=== PATIENT | male | born 1945 | race Caucasian/White ===

== ENCOUNTER → 2016-10-07 | Outpatient (REF) | payer MEDICARE | LOC: M LAB REF 12:49 | PROVIDERS: ATTEND Dermatology | DX: C44.310 Basal cell carcinoma of skin of unspecified parts of face (principal); C44.01 Basal cell carcinoma of skin of lip ==

== ENCOUNTER → 2016-11-07 | Outpatient (CLI) | payer MEDICARE | LOC: M SMT 13:23 | PROVIDERS: ATTEND Orthopaedic Surgery | DX: M25.521 Pain in right elbow (principal) ==

== ENCOUNTER → 2016-12-07 | Outpatient (CLI) | payer MEDICARE ==
--- NOTE | 2016-12-13 14:00 | SLEEPHOME ---
DATE OF PROCEDURE: 12/07/2016 REFERRING PROVIDER: Laverne Bonner DO INTERPRETATION: Diagnostic home sleep testing was performed due to concern for the obstructive sleep apnea syndrome in this patient with abnormal nocturnal oximetry. For testing, a NOX-T3 respiratory monitoring device was used. Continuous record was made of pulse, oxygen saturation, air flow, chest and abdominal strain, and body position. 9 hours and 59 minutes of data were reviewed. There were only 2 hours and 8 minutes marked as time in bed. During the interval marked time in bed, there were 12 respiratory events identified of 10 seconds in duration or greater for a respiratory event index of 5.6. The events were obstructive. Baseline pulse rate 64 beats per minute. Pulse rate ranged 61 to 69. Baseline saturation was 89%. Lowest oxygen saturation was 88%. Testing was performed in both the supine and nonsupine positions. IMPRESSION: Abnormal home sleep testing with repetitive respiratory events and oxygen desaturations to 88% with a respiratory event index of 5.6 is consistent with the obstructive sleep apnea syndrome. RECOMMENDATION: Home testing tends to underestimate the severity of disease and there was little time in bed noted during this study. In light of this, the patient should undergo formal sleep evaluation and consider in laboratory pressure titration.
== END ==
LOC: M SLEEP HO 12-04 11:49
PROVIDERS: ATTEND Family Medicine
DX: R53.83 Other fatigue (principal); R06.83 Snoring; G47.9 Sleep disorder, unspecified

== ENCOUNTER → 2017-02-04 | Outpatient (CLI) | payer MEDICARE ==
[~2017-02-04] MED LIST: GASTROGRAFIN SOLUTION 30ML (Q9963) As Ordered ONE
--- NOTE | 2017-02-05 09:18 | REP ---
CT ABDOMEN AND PELVIS WITHOUT IV CONTRAST WITH ORAL CONTRAST: CT abdomen and pelvis performed with oral contrast material in the axial plane, without IV contrast. Sagittal and coronal reconstruction images are performed. Visualized lung bases are clear. There is a small hiatal hernia. The liver, spleen, adrenals, pancreas, and kidneys are grossly unremarkable. No renal or ureteral calculus is seen and there is no hydroureteronephrosis. There is moderate atherosclerotic calcification of the abdominal aorta without aneurysm. I see no adenopathy. There is no free air or free fluid. There is no bowel wall thickening. Multiple diverticula are seen throughout the sigmoid and left colon. There is no appendicitis. There is no pelvic mass. Urinary bladder is mildly distended and grossly unremarkable. There is umbilical hernia containing fat. The aperture of the hernia is 3 cm in width. The hernia sac contains only fat. The sac measures 5.7 x 8.0 cm. There is no current evidence of incarceration. There are degenerative changes of the spine. IMPRESSION: Small hiatal hernia. Umbilical hernia containing fat as discussed above with no incarceration. Aperture is 3 cm in width. Colonic diverticulosis. No acute abnormalities. Signed by Anderson England MD 02/05/2017 05:32 P
== END ==
LOC: M RAD 16:21
PROVIDERS: ATTEND Physician Assistant Surgical
DX: K42.0 Umbilical hernia with obstruction, without gangrene (principal)
CPT/HCPCS: 74176; Q9963

== ENCOUNTER → 2017-03-05 | Outpatient (CLI) | payer MEDICARE ==
--- NOTE | 2017-03-07 14:56 | SLEEPCENT ---
DATE OF PROCEDURE: 03/05/2017 ORDERED BY: Heather Burrell Nocturnal polysomnography was performed for the titration of pressure therapy in this patient with a clinical diagnosis of obstructive sleep apnea syndrome supported by home testing, revealing a respiratory event index of 5.6. For testing, a Tripeese Simplus full face mask of medium size was used, 4 cm of water pressure were applied to the circuit and the lights were extinguished. 8 hours and 9 minutes of data were reviewed. There were 312 minutes of sleep identified. Sleep latency was mildly prolonged at 35 minutes. Rapid eye movement (REM) latency mildly prolonged at 123 minutes. Sleep architecture improved over the course of the study. There were 4 REM cycles noted. Overall sleep efficiency was 64% due to periods of wake between 1:00 and 2:00 and 3:00 and 4:00 a.m. The patient's electrocardiogram showed a sinus rhythm with an average heart rate of 76 beats per minute. EEG showed normal waveforms for awake and sleep. Respiratory events were best palliated with continuous positive airway pressure (CPAP) at a pressure of +11 with which the patient was able to sleep through REM without respiratory event or oxygen desaturation. The remaining measures of sleep physiology were reasonably normal. IMPRESSION: Obstructive sleep apnea syndrome (G47.33). RECOMMENDATION: Nightly use of pressure therapy 11 cm of water. Copy To: Dr. Bonner
== END ==
LOC: M SLEEP 19:58
PROVIDERS: ATTEND Nurse Practitioner Adult Health
DX: G47.33 Obstructive sleep apnea (adult) (pediatric) (principal)

== ENCOUNTER → 2018-06-16 | Outpatient (CLI) | payer MEDICARE ==
--- NOTE | 2018-06-16 15:41 | REP ---
LEFT FOOT, FOUR VIEWS: HISTORY: Injury. There is an old healed fracture of the fifth metatarsal. There is no acute fracture or dislocation. The joint spaces are normal in appearance. IMPRESSION: There is no acute fracture or dislocation. Electronically Signed by Philippe Zavala MD 06/16/2018 03:51 P
== END ==
LOC: M SMT 14:29
PROVIDERS: ATTEND Family Medicine
DX: S99.921A Unspecified injury of right foot, initial encounter (principal); W11.XXXA Fall on and from ladder, initial encounter; Y92.9 Unspecified place or not applicable; Y93.9 Activity, unspecified; Y99.9 Unspecified external cause status

== ENCOUNTER → 2018-09-14 | Outpatient (CLI) | payer MEDICARE ==
--- NOTE | 2018-09-14 23:21 | ECHO ---
DATE OF PROCEDURE: 09/14/2018 REFERRING PHYSICIAN: JIM Stanton INDICATION: Dyspnea. HEIGHT: 69 inches WEIGHT: 170 pounds 2D MEASUREMENTS: Left atrium: 3.6 cm Aortic root: 3.5 cm Ventricular septum: 0.76 cm Posterior wall: 0.79 cm Left ventricle diastole: 3.9 cm Inferior vena cava: 2.0 cm (more than 50% respiratory variation) DOPPLER MEASUREMENTS: Trace aortic regurgitation. No aortic stenosis. Aortic valve velocity: 110 cm/s LVOT velocity: 93.8 cm/s No mitral regurgitation. Mitral E velocity: 65.0 cm/s Mitral A velocity: 65.0 cm/s Mitral deceleration time: 254 ms Moderate tricuspid regurgitation. Estimated right ventricle systolic pressure 49 mmHg assuming a right atrial pressure of 5 mmHg. MITRAL ANNULAR TISSUE DOPPLER: E prime septal: 7.4 cm/s E prime lateral: 9.7 cm/s DESCRIPTION: Rhythm was sinus. Image quality was fair. No pericardial effusion. This is a 2D, M-mode, color flow Doppler and pulse wave Doppler examination that included mitral annular tissue Doppler. CONCLUSIONS: 1. Suggestive of moderate elevation of estimated right ventricle systolic pressure. Moderate tricuspid regurgitation. Mild right ventricle hypertrophy. Normal right ventricle systolic function. Mild right atrial dilatation by visual assessment. Structurally normal appearing tricuspid leaflets with moderate tricuspid regurgitation. 2. Hyperdynamic LV systolic function. LVEF 75% by visual estimate. Normal regional LV wall motion and wall thickening. Normal LV systolic function. Normal LV diastolic function for age. 3. Moderate aortic valve sclerosis of a three-cuspid aortic valve. Trace aortic regurgitation. No aortic stenosis. 4. Otherwise normal appearing echocardiogram Doppler findings.
== END ==
LOC: M CARPUL 09:25
PROVIDERS: ATTEND Physician Assistant
DX: R06.00 Dyspnea, unspecified (principal); I35.8 Other nonrheumatic aortic valve disorders

== ENCOUNTER → 2021-05-03 | Outpatient (CLI) | payer MEDICARE | LOC: M WUC 13:22 | PROVIDERS: ATTEND Physician Assistant | DX: R93.7 Abnormal findings on diagnostic imaging of other parts of musculoskeletal system (principal); M79.652 Pain in left thigh ==

== ENCOUNTER → 2021-05-17 | Outpatient (CLI) | payer MEDICARE | LOC: M PLAIMG 13:45 | PROVIDERS: ATTEND Physician Assistant | DX: D48.7 Neoplasm of uncertain behavior of other specified sites (principal) ==

== ENCOUNTER → 2021-07-09 | Outpatient (CLI) | payer MEDICARE | LOC: M PLAIMG 13:23 | PROVIDERS: ATTEND Physician Assistant | DX: M51.26 Other intervertebral disc displacement, lumbar region (principal); M51.27 Other intervertebral disc displacement, lumbosacral region; M51.37 Other intervertebral disc degeneration, lumbosacral region ==

== ENCOUNTER → 2022-02-03 | Outpatient (CLI) | payer MEDICARE | LOC: M WUC 13:53 | PROVIDERS: ATTEND Physician Assistant | DX: J20.9 Acute bronchitis, unspecified (principal) ==

== ENCOUNTER 2022-10-28 11:28 | Outpatient (RCR) | payer MEDICARE | END 2022-11-17 | LOC: M ST 11:28 | PROVIDERS: ATTEND Otolaryngology | DX: R49.0 Dysphonia (principal) ==

== ENCOUNTER → 2023-02-20 | Outpatient (CLI) | payer MEDICARE | LOC: M WUC 15:22 | PROVIDERS: ATTEND Family Medicine | DX: E87.1 Hypo-osmolality and hyponatremia (principal); J44.9 Chronic obstructive pulmonary disease, unspecified ==

== ENCOUNTER → 2023-05-07 | Outpatient (REF) | payer MEDICARE | LOC: M LAB REF 16:48 | PROVIDERS: ATTEND Physician Assistant | DX: J44.0 Chronic obstructive pulmonary disease with (acute) lower respiratory infection (principal) ==

== ENCOUNTER → 2023-05-08 | Outpatient (CLI) | payer MEDICARE | LOC: M WUC 14:43 | PROVIDERS: ATTEND Physician Assistant | DX: J44.0 Chronic obstructive pulmonary disease with (acute) lower respiratory infection (principal) ==

== ENCOUNTER → 2023-05-25 | Outpatient (CLI) | payer MEDICARE | LOC: M WUC 14:02 | PROVIDERS: ATTEND Physician Assistant | DX: J15.20 Pneumonia due to staphylococcus, unspecified (principal); J44.0 Chronic obstructive pulmonary disease with (acute) lower respiratory infection ==

== ENCOUNTER → 2023-07-01 | Outpatient (CLI) | payer MEDICARE ==
[2023-07-01 18:10] LABS: BLOOD UREA NITROGEN 16 MG/DL (9-23); CALCIUM LEVEL 8.8 MG/DL (8.3-10.6); CARBON DIOXIDE LEVEL 29 MMOL/L (20-31); CHLORIDE LEVEL 101 MMOL/L (98-107); CREATININE FOR GFR 1.06 MG/DL (0.70-1.30); GLOMERULAR FILTRATION RATE > 60.0 (>42); GLUCOSE, FASTING 97 MG/DL (74-106); POTASSIUM SERUM 4.2 MMOL/L (3.5-5.1); SODIUM LEVEL 136 MMOL/L (136-145)
== END ==
LOC: M PLALAB 15:21
PROVIDERS: ATTEND Physician Assistant
DX: I10 Essential (primary) hypertension (principal)

== ENCOUNTER → 2023-07-03 | Outpatient (CLI) | payer MEDICARE ==
[~2023-07-03] MED LIST changes: -GASTROGRAFIN SOLUTION 30ML (Q9963) As Ordered ONE; +ISOVUE-370 76% 100ML VIAL As Ordered ONE
== END ==
LOC: M RAD 10:09
PROVIDERS: ATTEND Physician Assistant
DX: R91.8 Other nonspecific abnormal finding of lung field (principal); R06.09 Other forms of dyspnea
CPT/HCPCS: 71260; Q9967

== ENCOUNTER → 2023-07-17 | Outpatient (CLI) | payer MEDICARE ==
[~2023-07-17] MED LIST changes: +ALPR0.5T3; +AMLO5CAP53; +BREO1INH3; +BUPR150T12; +ERGO500029; +FLUT1BLS17; +HYDR-3490; -ISOVUE-370 76% 100ML VIAL As Ordered ONE; +PANT40TA29; +SIMV20TA22; +SPIR12.9; +TAMS1CAP17; +TRAZ-252
== END ==
LOC: M RAD 07:45
PROVIDERS: ATTEND Internal Medicine Pulmonary Disease
DX: R91.8 Other nonspecific abnormal finding of lung field (principal)

== ENCOUNTER → 2023-08-24 | Outpatient (CLI) | payer MEDICARE ==
[~2023-08-24] MED LIST changes: -AMLO5CAP53; +AMLO5CAP53 PO; -BREO1INH3; +BREO1INH3 INH; -BUPR150T12; +BUPR150T12 PO; -ERGO500029; +ERGO500029 PO; -FLUT1BLS17; +FLUT1BLS17 INH; -HYDR-3490; +HYDR-3490 PO; -PANT40TA29; +PANT40TA29 PO; -SIMV20TA22; +SIMV20TA22 PO; -SPIR12.9; +SPIR12.9 INH; -TAMS1CAP17; +TAMS1CAP17 PO; -TRAZ-252; +TRAZ-252 PO
== END ==
LOC: M ONCR 13:42
PROVIDERS: ATTEND General Practice
DX: C34.11 Malignant neoplasm of upper lobe, right bronchus or lung (principal); R91.8 Other nonspecific abnormal finding of lung field; M54.9 Dorsalgia, unspecified; Z71.2 Person consulting for explanation of examination or test findings; Z87.891 Personal history of nicotine dependence; Z88.1 Allergy status to other antibiotic agents; Z88.2 Allergy status to sulfonamides; Z88.8 Allergy status to other drugs, medicaments and biological substances; Z79.51 Long term (current) use of inhaled steroids; Z79.899 Other long term (current) drug therapy

== ENCOUNTER → 2023-08-26 | Outpatient (CLI) | payer MEDICARE ==
[~2023-08-26] VITALS: Ht 175.3 cm; Wt 81.6 kg
[~2023-08-26] MED LIST changes: +LIDOCAINE 1% MDV 20ML VIAL As Ordered ONE; +LIDOCAINE W/EPINEPHRINE 1% 20ML VIAL As Ordered ONE; +MIDAZOLAM INJ 2MG/2ML VIAL As Ordered ONE; +NS 1,000 ML IV SCH; +ceFAZolin 2 GM/D5W 50 ML IV BAG As Ordered ONE; +ceFAZolin SOD 2 GM in IV 1 EA IV ONE; +fentaNYL 100 MCG/2 ML INJECTION As Ordered ONE
[2023-08-26 09:35] VITALS: TEMP 98.4
[2023-08-26 13:00] VITALS: BP 138/72; O2SAT 92
== END ==
LOC: M IRPRO 09:11
PROVIDERS: ATTEND Internal Medicine Medical Oncology
DX: C34.90 Malignant neoplasm of unspecified part of unspecified bronchus or lung (principal)
CPT/HCPCS: 36561; 99152; 99153; C1769; J0690; J2250; J3010

== ENCOUNTER → 2023-09-18 | Outpatient (RCR) | payer MEDICARE ==
[~2023-09-18] MED LIST changes: -LIDOCAINE 1% MDV 20ML VIAL As Ordered ONE; -LIDOCAINE W/EPINEPHRINE 1% 20ML VIAL As Ordered ONE; -MIDAZOLAM INJ 2MG/2ML VIAL As Ordered ONE; -NS 1,000 ML IV SCH; -ceFAZolin 2 GM/D5W 50 ML IV BAG As Ordered ONE; -ceFAZolin SOD 2 GM in IV 1 EA IV ONE; -fentaNYL 100 MCG/2 ML INJECTION As Ordered ONE
== END ==
LOC: M ONCR 08-27 10:25
PROVIDERS: ATTEND General Practice
DX: Z51.0 Encounter for antineoplastic radiation therapy (principal); C34.11 Malignant neoplasm of upper lobe, right bronchus or lung

== ENCOUNTER 2023-10-10 12:37 | Emergency (ER) | payer MEDICARE ==
[~2023-10-10] VITALS: Ht 175.3 cm; Wt 81.4 kg
[2023-10-10] MEDS: NORCO, ANEXSIA 5/325MG TABLET (HYDROcodone/ACETAMINOPHEN) PO ONE (15:59)
[2023-10-10] MEDS ORDERED: HYDR-3713 PO (17:04)
[2023-10-10 17:23] VITALS: BP 114/54; TEMP 97.7; O2SAT 96
[2023-10-12] MEDS ORDERED: ACET-907 PO (13:21)
[2023-10-12] MEDS ORDERED: advil PO (13:21)
== END 2023-10-10 17:24 | disposition home or self-care (01) ==
LOC: M ED 12:37
DX: S82.431A Displaced oblique fracture of shaft of right fibula, initial encounter for closed fracture (principal); S92.311A Displaced fracture of first metatarsal bone, right foot, initial encounter for closed fracture; S92.321A Displaced fracture of second metatarsal bone, right foot, initial encounter for closed fracture; S92.341A Displaced fracture of fourth metatarsal bone, right foot, initial encounter for closed fracture; S82.64XA Nondisplaced fracture of lateral malleolus of right fibula, initial encounter for closed fracture; W18.40XA Slipping, tripping and stumbling without falling, unspecified, initial encounter; Y92.009 Unspecified place in unspecified non-institutional (private) residence as the place of occurrence of the external cause; Y93.9 Activity, unspecified; Y99.9 Unspecified external cause status; I10 Essential (primary) hypertension; E78.5 Hyperlipidemia, unspecified; G47.33 Obstructive sleep apnea (adult) (pediatric); Z85.118 Personal history of other malignant neoplasm of bronchus and lung; Z92.21 Personal history of antineoplastic chemotherapy; Z92.3 Personal history of irradiation; Z79.899 Other long term (current) drug therapy; Z88.2 Allergy status to sulfonamides; Z88.8 Allergy status to other drugs, medicaments and biological substances

== ENCOUNTER → 2023-10-13 | Outpatient (CLI) | payer MEDICARE ==
[~2023-10-13] MED LIST changes: +ACET-907 PO; +HYDR-3713 PO; +advil PO
== END ==
LOC: M SOG 08:38
PROVIDERS: ATTEND Orthopaedic Surgery
DX: M25.571 Pain in right ankle and joints of right foot (principal)

== ENCOUNTER 2023-10-16 13:29 | Outpatient (RCR) | payer MEDICARE | END 2023-10-18 | LOC: M ONCR 13:29 | PROVIDERS: ATTEND General Practice | DX: Z51.0 Encounter for antineoplastic radiation therapy (principal); C34.11 Malignant neoplasm of upper lobe, right bronchus or lung ==

== ENCOUNTER → 2023-10-21 | Outpatient (CLI) | payer MEDICARE | LOC: M SOG 07:55 | PROVIDERS: ATTEND Orthopaedic Surgery | DX: S82.61XA Displaced fracture of lateral malleolus of right fibula, initial encounter for closed fracture (principal) ==

== ENCOUNTER 2023-10-26 13:38 | Outpatient (RCR) | payer MEDICARE | END 2023-11-18 | LOC: M ONCR 13:38 | PROVIDERS: ATTEND General Practice | DX: Z51.0 Encounter for antineoplastic radiation therapy (principal); C34.11 Malignant neoplasm of upper lobe, right bronchus or lung ==

== ENCOUNTER → 2023-10-28 | Outpatient (CLI) | payer MEDICARE | LOC: M SOG 07:54 | PROVIDERS: ATTEND Orthopaedic Surgery | DX: S82.61XA Displaced fracture of lateral malleolus of right fibula, initial encounter for closed fracture (principal); S92.324A Nondisplaced fracture of second metatarsal bone, right foot, initial encounter for closed fracture; S92.314A Nondisplaced fracture of first metatarsal bone, right foot, initial encounter for closed fracture; Y93.9 Activity, unspecified; Y92.9 Unspecified place or not applicable ==

== ENCOUNTER 2023-10-29 10:36 | Outpatient (CLI) | payer MEDICARE ==
[2023-10-29 11:15] VITALS: BP 112/56; O2SAT 96
[2023-10-29] MEDS: MAG SULF 1GM/100ML (MAG RUN) IV ONE (11:27)
[2023-10-29] MEDS: SODIUM CHLORIDE 0.9% INJ 10 ML SYR IV PRN (12:24)
[2023-10-29 12:30] VITALS: BP 118/58; O2SAT 97
== END 2023-10-29 12:30 ==
LOC: M INFU 10:36
PROVIDERS: ATTEND Internal Medicine Medical Oncology
DX: C34.90 Malignant neoplasm of unspecified part of unspecified bronchus or lung (principal); Z88.2 Allergy status to sulfonamides; Z88.8 Allergy status to other drugs, medicaments and biological substances
CPT/HCPCS: 96365; J3475

== ENCOUNTER → 2023-11-11 | Outpatient (CLI) | payer MEDICARE | LOC: M SOG 08:00 | PROVIDERS: ATTEND Orthopaedic Surgery | DX: S92.344D Nondisplaced fracture of fourth metatarsal bone, right foot, subsequent encounter for fracture with routine healing (principal); S82.61XD Displaced fracture of lateral malleolus of right fibula, subsequent encounter for closed fracture with routine healing; S92.314D Nondisplaced fracture of first metatarsal bone, right foot, subsequent encounter for fracture with routine healing; S92.324D Nondisplaced fracture of second metatarsal bone, right foot, subsequent encounter for fracture with routine healing ==

== ENCOUNTER → 2023-11-30 | Outpatient (CLI) | payer MEDICARE ==
[~2023-11-30] MED LIST changes: +GASTROGRAFIN SOLUTION 30ML As Ordered ONE; +ISOVUE-370 76% 100ML VIAL As Ordered ONE
== END ==
LOC: M RAD 14:13
PROVIDERS: ATTEND Internal Medicine Medical Oncology
DX: C34.90 Malignant neoplasm of unspecified part of unspecified bronchus or lung (principal)
CPT/HCPCS: 71260; 74177; Q9963; Q9967

== ENCOUNTER → 2023-12-02 | Outpatient (CLI) | payer MEDICARE ==
[~2023-12-02] MED LIST changes: -GASTROGRAFIN SOLUTION 30ML As Ordered ONE; -ISOVUE-370 76% 100ML VIAL As Ordered ONE
== END ==
LOC: M SOG 08:00
PROVIDERS: ATTEND Orthopaedic Surgery
DX: S82.61XD Displaced fracture of lateral malleolus of right fibula, subsequent encounter for closed fracture with routine healing (principal); S92.314D Nondisplaced fracture of first metatarsal bone, right foot, subsequent encounter for fracture with routine healing; M19.071 Primary osteoarthritis, right ankle and foot

== ENCOUNTER → 2023-12-08 | Outpatient (REF) | payer MEDICARE ==
[2023-12-08 22:40] LABS: AMORPHOUS SEDIMENT SMALL (NEGATIVE); APPEARANCE, URINE CLOUDY (CLEAR); BACTERIA, URINE AUTO 2+ (NEGATIVE); BILIRUBIN, URINE AUTO NEGATIVE (NEGATIVE); BLOOD, URINE BLOOD NEGATIVE (NEGATIVE); COLOR, URINE AMBER (YELLOW); GLUCOSE, URINE (UA) AUTO NEGATIVE (NEGATIVE); KETONE, URINE AUTO NEGATIVE (NEGATIVE); LEUKOCYTE ESTERASE, URINE AUTO 3+ (NEGATIVE); MUCUS, URINE SMALL (NEGATIVE); NITRITE, URINE AUTO POSITIVE (NEGATIVE); PROTEIN, URINE AUTO 2+ mg/dL (NEGATIVE); RBC, URINE AUTO 2 /HPF (0-3); SPECIFIC GRAVITY URINE AUTO 1.012 (1.002-1.035); SQUAMOUS EPITHELIAL CELL UR AU 0 /HPF (0-6); WBC, URINE AUTO 121 /HPF (0-3)
== END ==
LOC: M LAB REF 22:23
PROVIDERS: ATTEND Physician Assistant Medical
DX: N39.0 Urinary tract infection, site not specified (principal)

== ENCOUNTER → 2024-01-14 | Outpatient (CLI) | payer MEDICARE | LOC: M SOG 07:21 | PROVIDERS: ATTEND Orthopaedic Surgery | DX: S92.314D Nondisplaced fracture of first metatarsal bone, right foot, subsequent encounter for fracture with routine healing (principal); S92.324D Nondisplaced fracture of second metatarsal bone, right foot, subsequent encounter for fracture with routine healing; S82.61XD Displaced fracture of lateral malleolus of right fibula, subsequent encounter for closed fracture with routine healing ==

== ENCOUNTER → 2024-02-10 | Outpatient (CLI) | payer MEDICARE | LOC: M WUC 11:13 | PROVIDERS: ATTEND Physician Assistant | DX: M25.571 Pain in right ankle and joints of right foot (principal) ==

== ENCOUNTER → 2024-03-14 | Outpatient (CLI) | payer MEDICARE | LOC: M SOG 07:53 | PROVIDERS: ATTEND Orthopaedic Surgery | DX: S82.61XD Displaced fracture of lateral malleolus of right fibula, subsequent encounter for closed fracture with routine healing (principal); S92.314D Nondisplaced fracture of first metatarsal bone, right foot, subsequent encounter for fracture with routine healing; S92.324D Nondisplaced fracture of second metatarsal bone, right foot, subsequent encounter for fracture with routine healing ==

== ENCOUNTER 2024-03-29 15:00 | Outpatient (RCR) | payer MEDICARE | END 2024-04-19 | LOC: M PT 15:00 | PROVIDERS: ATTEND Orthopaedic Surgery | DX: S82.61XD Displaced fracture of lateral malleolus of right fibula, subsequent encounter for closed fracture with routine healing (principal) ==

== ENCOUNTER → 2024-04-27 | Outpatient (CLI) | payer MEDICARE ==
[~2024-04-27] MED LIST changes: +IPRA0.00 INH
== END ==
LOC: M ONCR 13:51
PROVIDERS: ATTEND General Practice
DX: C34.11 Malignant neoplasm of upper lobe, right bronchus or lung (principal); J44.9 Chronic obstructive pulmonary disease, unspecified; R53.81 Other malaise; Z87.891 Personal history of nicotine dependence; Z92.3 Personal history of irradiation; Z79.620 Long term (current) use of immunosuppressive biologic; Z88.8 Allergy status to other drugs, medicaments and biological substances; Z88.2 Allergy status to sulfonamides; Z88.1 Allergy status to other antibiotic agents; Z79.899 Other long term (current) drug therapy; Z79.51 Long term (current) use of inhaled steroids; Z99.89 Dependence on other enabling machines and devices

== ENCOUNTER → 2024-05-05 | Outpatient (CLI) | payer MEDICARE ==
[~2024-05-05] MED LIST changes: +ISOVUE-370 76% 100ML VIAL As Ordered ONE
== END ==
LOC: M RAD 15:38
PROVIDERS: ATTEND Internal Medicine Medical Oncology
DX: C34.90 Malignant neoplasm of unspecified part of unspecified bronchus or lung (principal)
CPT/HCPCS: 71260; 74177; Q9967

== ENCOUNTER 2024-05-11 12:08 | Outpatient (RCR) | payer MEDICARE ==
[~2024-05-11 12:08] MED LIST changes: -ISOVUE-370 76% 100ML VIAL As Ordered ONE
== END 2024-05-20 ==
LOC: M PT 12:08
PROVIDERS: ATTEND Orthopaedic Surgery
DX: S82.61XD Displaced fracture of lateral malleolus of right fibula, subsequent encounter for closed fracture with routine healing (principal); M62.81 Muscle weakness (generalized)

== ENCOUNTER → 2024-05-13 | Outpatient (CLI) | payer MEDICARE | LOC: M SOG 09:46 | PROVIDERS: ATTEND Orthopaedic Surgery | DX: M25.571 Pain in right ankle and joints of right foot (principal); R93.6 Abnormal findings on diagnostic imaging of limbs ==

== ENCOUNTER → 2024-06-13 | Outpatient (CLI) | payer MEDICARE ==
[~2024-06-13] MED LIST changes: +LATA1DRO
== END ==
LOC: M PLARAD 11:32
PROVIDERS: ATTEND Nurse Practitioner Women's Health
DX: C34.11 Malignant neoplasm of upper lobe, right bronchus or lung (principal)
CPT/HCPCS: 78815; A9552

== ENCOUNTER → 2024-06-17 | Outpatient (RCR) | payer MEDICARE | LOC: M PT 11:17 | PROVIDERS: ATTEND Orthopaedic Surgery | DX: M62.81 Muscle weakness (generalized) (principal); S82.61XD Displaced fracture of lateral malleolus of right fibula, subsequent encounter for closed fracture with routine healing ==

== ENCOUNTER → 2024-06-23 | Outpatient (CLI) | payer MEDICARE ==
[~2024-06-23] MED LIST changes: +ADVA1AER8 INH; +AMLO1TAB37 PO; +B-12100021 PO; +CIPR3OPO OU; +DORZ2SOL5 OU; +ENUL10SO PO; +FISH10002 PO; +LACT20EL PO; +XALA0.007 OU
== END ==
LOC: M ONCR 11:08
PROVIDERS: ATTEND General Practice
DX: C34.11 Malignant neoplasm of upper lobe, right bronchus or lung (principal); C77.1 Secondary and unspecified malignant neoplasm of intrathoracic lymph nodes; Z79.620 Long term (current) use of immunosuppressive biologic; Z92.21 Personal history of antineoplastic chemotherapy; Z92.3 Personal history of irradiation; Z87.891 Personal history of nicotine dependence; Z88.1 Allergy status to other antibiotic agents; Z88.2 Allergy status to sulfonamides; Z88.8 Allergy status to other drugs, medicaments and biological substances; Z79.51 Long term (current) use of inhaled steroids; Z79.899 Other long term (current) drug therapy

== ENCOUNTER 2024-06-27 21:07 | Observation (INO) | payer MEDICARE ==
[~2024-06-27 21:07] MED LIST changes: -ADVA1AER8 INH; -AMLO1TAB37 PO; -B-12100021 PO; -CIPR3OPO OU; -DORZ2SOL5 OU; -ENUL10SO PO; -FISH10002 PO; -XALA0.007 OU
[2024-06-27] MEDS ORDERED: B-12100021 PO (21:40)
[2024-06-27] MEDS ORDERED: FISH10002 PO (21:40)
[2024-06-27] MEDS ORDERED: ENUL10SO PO (21:40)
[2024-06-27] MEDS ORDERED: ADVA1AER8 INH (21:40)
[2024-06-27] MEDS: BISACODYL 10MG SUPP PR ONE (21:55)
[2024-06-27 22:57] LABS: BASO % 0.5 % (0.0-1.0); EOS % 0.9 % (0.0-3.0); HEMATOCRIT 31.9 % (42.0-52.0); HEMOGLOBIN 10.7 g/dl (13.5-17.5); LYMPH # 0.5 10^3/uL (1.5-5.0); LYMPH % 10.7 % (24.0-44.0); MEAN CORPUSCULAR HEMOGLOBIN 35.4 pg (27.0-33.0); MEAN CORPUSCULAR HGB CONC 33.5 g/dl (32.0-36.5); MEAN CORPUSCULAR VOLUME 105.6 fl (80.0-96.0); MONO # 0.6 10^3/uL (0.0-0.8); NEUTROPHILS # 3.3 10^3/uL (1.5-8.5); NEUTROPHILS % 74.7 % (36.0-66.0); PLATELET COUNT, AUTOMATED 173 10^3/uL (150-450); RED BLOOD COUNT 3.02 10^6/uL (4.30-6.10); WHITE BLOOD COUNT 4.4 10^3/uL (4.0-10.0)
[2024-06-27 23:21] LABS: BLOOD UREA NITROGEN 19 MG/DL (9-23); CALCIUM LEVEL 9.2 MG/DL (8.3-10.6); CARBON DIOXIDE LEVEL 27 MMOL/L (20-31); CHLORIDE LEVEL 103 MMOL/L (98-107); CREATININE FOR GFR 0.92 MG/DL (0.70-1.30); GLOMERULAR FILTRATION RATE > 60.0 (>42); GLUCOSE, FASTING 110 MG/DL (74-106); MAGNESIUM LEVEL 2.7 MG/DL (1.8-2.4); POTASSIUM SERUM 4.6 MMOL/L (3.5-5.1); SODIUM LEVEL 140 MMOL/L (136-145)
[2024-06-27] MEDS ORDERED: AMLO1TAB37 PO (23:29)
[2024-06-27] MEDS ORDERED: CIPR3OPO OU (23:29)
[2024-06-27] MEDS ORDERED: XALA0.007 OU (23:29)
[2024-06-27] MEDS ORDERED: DORZ2SOL5 OU (23:29)
[2024-06-27] MEDS ORDERED: HOME MED LIST COMPLETE! XX SCH (23:30)
[2024-06-27] MEDS ORDERED: BISACODYL 10MG SUPP PR PRN (23:45)
[2024-06-27] MEDS ORDERED: IPRATROPIUM 0.5MG/ALBUTEROL 2.5MG INH SOL UD 3ML (DUONEB) INH PRN (23:45)
[2024-06-28] VITALS (10 sets, daily range): BP systolic 101–140; BP diastolic 54–78; TEMP 97–97.3; O2SAT 86–95
[2024-06-28] MEDS: FLEET ENEMA PR ONE (01:45)
[2024-06-28] MEDS: ACETAMINOPHEN 325 MG TAB PO PRN (01:45)
[2024-06-28] MEDS: LACTULOSE 20GM/30ML SYRUP UDC PO ONE (01:45)
[2024-06-28] MEDS: ONDANSETRON 4MG 2ML VIAL IV ONE (04:42)
[2024-06-28 05:55] LABS: HEMATOCRIT 31.9 % (42.0-52.0); HEMOGLOBIN 10.5 g/dl (13.5-17.5); MEAN CORPUSCULAR HEMOGLOBIN 34.8 pg (27.0-33.0); MEAN CORPUSCULAR HGB CONC 32.9 g/dl (32.0-36.5); MEAN CORPUSCULAR VOLUME 105.6 fl (80.0-96.0); PLATELET COUNT, AUTOMATED 170 10^3/uL (150-450); RED BLOOD COUNT 3.02 10^6/uL (4.30-6.10); WHITE BLOOD COUNT 5.3 10^3/uL (4.0-10.0)
[2024-06-28] MEDS: NS (Normal Saline) 0.9% 1,000 ML IV SCH (06:11)
[2024-06-28 06:28] LABS: BLOOD UREA NITROGEN 20 MG/DL (9-23); CALCIUM LEVEL 9.2 MG/DL (8.3-10.6); CARBON DIOXIDE LEVEL 27 MMOL/L (20-31); CHLORIDE LEVEL 105 MMOL/L (98-107); CREATININE FOR GFR 0.98 MG/DL (0.70-1.30); GLOMERULAR FILTRATION RATE > 60.0 (>42); GLUCOSE, FASTING 110 MG/DL (74-106); MAGNESIUM LEVEL 2.6 MG/DL (1.8-2.4); POTASSIUM SERUM 4.4 MMOL/L (3.5-5.1); SODIUM LEVEL 142 MMOL/L (136-145)
[2024-06-28 07:07] LABS: AMORPHOUS SEDIMENT MODERATE (NEGATIVE); APPEARANCE, URINE CLOUDY (CLEAR); BACTERIA, URINE AUTO NEGATIVE (NEGATIVE); BILIRUBIN, URINE AUTO NEGATIVE (NEGATIVE); BLOOD, URINE BLOOD 1+ (NEGATIVE); COLOR, URINE AMBER (YELLOW); GLUCOSE, URINE (UA) AUTO NEGATIVE (NEGATIVE); KETONE, URINE AUTO 1+ mg/dL (NEGATIVE); LEUKOCYTE ESTERASE, URINE AUTO NEGATIVE (NEGATIVE); MUCUS, URINE LARGE (NEGATIVE); NITRITE, URINE AUTO NEGATIVE (NEGATIVE); PROTEIN, URINE AUTO 1+ mg/dL (NEGATIVE); RBC, URINE AUTO 10 /HPF (0-3); SPECIFIC GRAVITY URINE AUTO 1.023 (1.002-1.035); SQUAMOUS EPITHELIAL CELL UR AU 0 /HPF (0-6); WBC, URINE AUTO 3 /HPF (0-3)
[2024-06-28] MEDS ORDERED: LOTR52CA PO (07:43)
[2024-06-28] MEDS: ADVAIR HFA 115/21MCG INHALER INH SCH (07:49)
[2024-06-28] MEDS: SENOKOT S TAB PO SCH (08:47)
[2024-06-28] MEDS: COSOPT OCUMETER PLUS 10ML (DORZOLAMIDE/TIMOLOL) OU SCH (08:48)
[2024-06-28] MEDS: amLODIPine 5 MG TAB PO SCH (08:48)
[2024-06-28] MEDS: HEPARIN SOD (PORCINE) 5000UNITS/ML 1ML VIAL/SYRINGE SQ SCH (08:49)
[2024-06-28] MEDS: PANTOPRAZOLE 40MG VIAL IV SCH (08:49)
[2024-06-28] MEDS: FLEET OIL RETENTION ENEMA PR ONE (09:36)
[2024-06-28] MEDS: MAGNESIUM CITRATE 300ML BTL PO ONE (10:55)
[2024-06-28] MEDS: MAALOX 30 ML SUSP *UDC PO PRN (13:04)
[2024-06-28] MEDS: MIRALAX *UNIT DOSE* 17GM PACKET PO PRN (13:23)
[2024-06-28] MEDS: FLEET ENEMA PR PRN (14:47)
[2024-06-28] MEDS: CIPROFLOXACIN 0.3% OPHTH OINTMENT OU SCH (20:22)
[2024-06-28] MEDS: ONDANSETRON 4MG 2ML VIAL IV PRN (20:23)
[2024-06-28] MEDS: LATANOPROST 0.005% OPHTH SOLN 2.5 ML OU SCH (20:23)
[2024-06-28] MEDS: SIMVASTATIN 20 MG TAB PO SCH (20:23)
[2024-06-28] MEDS: traZODone 50 MG TAB PO SCH (20:23)
[2024-06-29 03:55] VITALS: BP 110/56; TEMP 97.3; O2SAT 92
[2024-06-29 08:00] VITALS: BP 114/57; TEMP 97.5; O2SAT 94
[2024-06-29 09:36] LABS: BASO % 0.2 % (0.0-1.0); HEMATOCRIT 25.7 % (42.0-52.0); HEMOGLOBIN 8.4 g/dl (13.5-17.5); LYMPH # 0.7 10^3/uL (1.5-5.0); LYMPH % 11.5 % (24.0-44.0); MEAN CORPUSCULAR HEMOGLOBIN 34.7 pg (27.0-33.0); MEAN CORPUSCULAR HGB CONC 32.7 g/dl (32.0-36.5); MEAN CORPUSCULAR VOLUME 106.2 fl (80.0-96.0); MONO # 0.7 10^3/uL (0.0-0.8); MONO % 12.4 % (2.0-8.0); NEUTROPHILS # 4.3 10^3/uL (1.5-8.5); NEUTROPHILS % 75.7 % (36.0-66.0); PLATELET COUNT, AUTOMATED 157 10^3/uL (150-450); RED BLOOD COUNT 2.42 10^6/uL (4.30-6.10); WHITE BLOOD COUNT 5.7 10^3/uL (4.0-10.0)
[2024-06-29 09:55] LABS: BLOOD UREA NITROGEN 29 MG/DL (9-23); CALCIUM LEVEL 7.5 MG/DL (8.3-10.6); CARBON DIOXIDE LEVEL 27 MMOL/L (20-31); CHLORIDE LEVEL 108 MMOL/L (98-107); CREATININE FOR GFR 0.76 MG/DL (0.70-1.30); GLOMERULAR FILTRATION RATE > 60.0 (>42); GLUCOSE, FASTING 97 MG/DL (74-106); MAGNESIUM LEVEL 2.8 MG/DL (1.8-2.4); SODIUM LEVEL 141 MMOL/L (136-145)
[2024-06-29] MEDS: LACTULOSE 20GM/30ML SYRUP UDC PO PRN (11:08)
[2024-06-29 12:00] VITALS: BP 136/58; TEMP 97.2; O2SAT 91
[2024-06-29 16:00] VITALS: BP 112/56; TEMP 97.2; O2SAT 97
[2024-06-29 20:30] VITALS: BP 112/56; TEMP 97.3; O2SAT 94
[2024-06-29] MEDS: TAMSULOSIN 0.4 MG CAP PO ONE (23:43)
[2024-06-29 23:58] VITALS: BP 108/54; TEMP 97.5; O2SAT 96
[2024-06-30] VITALS (7 sets, daily range): BP systolic 100–104; BP diastolic 44–46; TEMP 97.2–97.5; O2SAT 89–96
[2024-06-30 06:38] LABS: BLOOD UREA NITROGEN 21 MG/DL (9-23); CALCIUM LEVEL 7.4 MG/DL (8.3-10.6); CARBON DIOXIDE LEVEL 26 MMOL/L (20-31); CHLORIDE LEVEL 107 MMOL/L (98-107); GLOMERULAR FILTRATION RATE > 60.0 (>42); GLUCOSE, FASTING 86 MG/DL (74-106); MAGNESIUM LEVEL 2.5 MG/DL (1.8-2.4); POTASSIUM SERUM 3.9 MMOL/L (3.5-5.1); SODIUM LEVEL 141 MMOL/L (136-145)
[2024-06-30] MEDS ORDERED: MIRA3350 PO (10:30)
[2024-06-30] MEDS ORDERED: DOCU8.6T PO (10:30)
[2024-06-30] MEDS ORDERED: FLOM0.4C39 PO (10:31)
[2024-06-30] MEDS ORDERED: LIDO30CR18 TOP (10:49)
[2024-06-30] MEDS ORDERED: LIDO5CRE7 TOP (10:52)
== END 2024-06-30 13:21 | disposition home or self-care (01) ==
LOC: EDBD 21:07 → M ED 21:07 → M ED INP 21:08 → M MSPAV 06-28 03:43
PROVIDERS: ADMIT Student in an Organized Health Care Education/Training Program; ATTEND Internal Medicine
DX: K59.00 Constipation, unspecified (principal); R33.9 Retention of urine, unspecified; R14.0 Abdominal distension (gaseous); Z96.0 Presence of urogenital implants; I10 Essential (primary) hypertension; E78.5 Hyperlipidemia, unspecified; K21.9 Gastro-esophageal reflux disease without esophagitis; J44.9 Chronic obstructive pulmonary disease, unspecified; C34.90 Malignant neoplasm of unspecified part of unspecified bronchus or lung; J96.11 Chronic respiratory failure with hypoxia; D64.9 Anemia, unspecified; Z98.890 Other specified postprocedural states; Z87.891 Personal history of nicotine dependence; Z88.2 Allergy status to sulfonamides; Z88.8 Allergy status to other drugs, medicaments and biological substances; Z79.899 Other long term (current) drug therapy; Z79.51 Long term (current) use of inhaled steroids
CPT/HCPCS: 36415; 36591; 74176; 80048; 80053; 81001; 82607; 82728; 82746; 83550; 83735; 84439; 84443; 84481; 85025; 85027; 94640; 96361; 96372; 96374; 96375; 96376; 97116; 97161; 97530; 99285; G0378; G0463; J1642; J2405; J2470

== ENCOUNTER 2024-07-15 10:15 | Outpatient (RCR) | payer MEDICARE ==
[~2024-07-15 10:15] MED LIST changes: +ADVA1AER8 INH; +AMLO1TAB37 PO; +B-12100021 PO; +CIPR3OPO OU; +DOCU8.6T PO; +DORZ2SOL5 OU; +ENUL10SO PO; +FISH10002 PO; +FLOM0.4C39 PO; +LIDO30CR18 TOP; +LIDO5CRE7 TOP; +LOTR52CA PO; +MIRA3350 PO; +XALA0.007 OU
[2024-07-19] MEDS ORDERED: PHOS1TAB3 PO (13:00)
== END 2024-07-18 ==
LOC: M ONCR 10:15
PROVIDERS: ATTEND General Practice
DX: Z51.0 Encounter for antineoplastic radiation therapy (principal); C34.11 Malignant neoplasm of upper lobe, right bronchus or lung

== ENCOUNTER → 2024-07-18 | Outpatient (RCR) | payer MEDICARE ==
[~2024-07-18] MED LIST changes: +PHOS1TAB3 PO
== END ==
LOC: M PT 06-20 14:48
PROVIDERS: ATTEND Orthopaedic Surgery
DX: S82.61XD Displaced fracture of lateral malleolus of right fibula, subsequent encounter for closed fracture with routine healing (principal); M62.81 Muscle weakness (generalized)

== ENCOUNTER 2024-08-05 13:15 | Outpatient (RCR) | payer MEDICARE ==
[~2024-08-05 13:15] MED LIST changes: -FLOM0.4C39 PO; +TAMS-18 PO
[2024-08-09] MEDS ORDERED: AUGM500T34 PO (16:50)
== END 2024-08-17 ==
LOC: M PT 13:15
PROVIDERS: ATTEND Orthopaedic Surgery
DX: M62.81 Muscle weakness (generalized) (principal); S82.61XD Displaced fracture of lateral malleolus of right fibula, subsequent encounter for closed fracture with routine healing

== ENCOUNTER → 2024-08-09 | Outpatient (CLI) | payer MEDICARE ==
[~2024-08-09] MED LIST changes: +AUGM500T34 PO; +FLOM0.4C39 PO; -TAMS-18 PO
== END ==
LOC: M WUC 14:53
PROVIDERS: ATTEND Internal Medicine Medical Oncology
DX: C34.90 Malignant neoplasm of unspecified part of unspecified bronchus or lung (principal)

== ENCOUNTER 2024-08-22 15:27 | Inpatient (IN) | payer MEDICARE ==
[~2024-08-22] VITALS: Ht 175.3 cm; Wt 65.9 kg
[~2024-08-22 15:27] MED LIST changes: -FLOM0.4C39 PO; +TAMS-18 PO
[2024-08-22 16:48] LABS: BASO % 0.2 % (0.0-1.0); EOS # 0.1 10^3/uL (0.0-0.5); EOS % 1.2 % (0.0-3.0); HEMATOCRIT 35.1 % (42.0-52.0); HEMOGLOBIN 11.6 g/dl (13.5-17.5); LYMPH # 0.6 10^3/uL (1.5-5.0); LYMPH % 5.8 % (24.0-44.0); MEAN CORPUSCULAR HEMOGLOBIN 34.2 pg (27.0-33.0); MEAN CORPUSCULAR VOLUME 103.5 fl (80.0-96.0); MONO # 0.8 10^3/uL (0.0-0.8); MONO % 7.9 % (2.0-8.0); NEUTROPHILS # 8.2 10^3/uL (1.5-8.5); NEUTROPHILS % 84.5 % (36.0-66.0); PLATELET COUNT, AUTOMATED 171 10^3/uL (150-450); RED BLOOD COUNT 3.39 10^6/uL (4.30-6.10); WHITE BLOOD COUNT 9.8 10^3/uL (4.0-10.0)
[2024-08-22] MEDS ORDERED: SODIUM CHLORIDE 0.9% INJ 10 ML SYR IV PRN (17:05)
[2024-08-22 17:13] LABS: CK-MB VALUE MASS 2.2 NG/ML (<3.6)
[2024-08-22 17:15] LABS: CPK CREATINE PHOSPHOKINASE 58 U/L (46-171); MB/CK RELATIVE INDEX 3.79 (< OR =4)
[2024-08-22 17:16] LABS: ALBUMIN 3.6 G/DL (3.2-5.2); ALKALINE PHOSPHATASE 55 U/L (40-129); ALT/SGPT 19 U/L (7.0-40); AST/SGOT 16 U/L (<34); BILIRUBIN,DIRECT 0.2 MG/DL (<0.4); BILIRUBIN,TOTAL 0.5 MG/DL (0.3-1.2); BLOOD UREA NITROGEN 22 MG/DL (9-23); CALCIUM LEVEL 8.9 MG/DL (8.3-10.6); CARBON DIOXIDE LEVEL 32 MMOL/L (20-31); CHLORIDE LEVEL 99 MMOL/L (98-107); CREATININE FOR GFR 0.77 MG/DL (0.70-1.30); GLOMERULAR FILTRATION RATE > 90.0 (>42); GLUCOSE, FASTING 98 MG/DL (74-106); SODIUM LEVEL 137 MMOL/L (136-145); TOTAL PROTEIN 6.3 G/DL (5.7-8.2)
[2024-08-22 17:17] LABS: THYROID STIMULATING HORMONE 1.217 uIU/ML (0.55-4.78); THYROXINE (T4) 10.9 UG/DL (4.5-10.9)
[2024-08-22] MEDS: IPRATROPIUM 0.5MG/ALBUTEROL 2.5MG INH SOL UD 3ML NEB PRN (17:21)
[2024-08-22] MEDS: dexAMETHasone 20MG/5ML VIAL IV ONE (17:55)
[2024-08-22] MEDS ORDERED: ISOVUE-370 76% 100ML VIAL As Ordered ONE (18:40)
[2024-08-22] MEDS ORDERED: MAALOX 30 ML SUSP *UDC PO PRN (21:30)
[2024-08-22] MEDS ORDERED: MOM 30ML SUSPENSION UDC PO PRN (21:30)
[2024-08-22] MEDS ORDERED: KETOROLAC 30 MG/ML 1ML VIAL IV PRN (21:30)
[2024-08-22] MEDS ORDERED: ACETAMINOPHEN 325 MG TAB PO PRN (21:30)
[2024-08-22] MEDS ORDERED: ALBU8.5H INH (21:45)
[2024-08-22] MEDS ORDERED: BENA-8 PO (21:45)
[2024-08-22] MEDS ORDERED: KETO2CR TOP (21:45)
[2024-08-22] MEDS ORDERED: LINZ290C PO (21:45)
[2024-08-22] MEDS ORDERED: CITA20TA7 PO (21:45)
[2024-08-22] MEDS ORDERED: TAMS-18 PO (21:45)
[2024-08-22] MEDS ORDERED: TIOT18CA INH (21:45)
[2024-08-22] MEDS ORDERED: HOME MED LIST COMPLETE! XX SCH (21:45)
[2024-08-22] MEDS: CEFEPIME HCL 2 GM in DEXTROSE 5% (D5W) ADV/MINI-BAG 50 ML IV ONE (23:02)
[2024-08-22 23:15] VITALS: BP 117/68; TEMP 98.2; O2SAT 94
[2024-08-22] MEDS: D5W/LR 1,000 ML IV SCH (23:35)
[2024-08-22 23:54] VITALS: O2SAT 91
[2024-08-23] MEDS: ALBUTEROL 90 MCG/ACT 8GM HFA INHALER INH SCH (02:00)
[2024-08-23 04:08] VITALS: BP 100/52; TEMP 97.9; O2SAT 95
[2024-08-23] MEDS: IPRATROPIUM 0.5MG/ALBUTEROL 2.5MG INH SOL UD 3ML NEB SCH (07:39)
[2024-08-23] MEDS: SODIUM CHLORIDE HYPERTONIC 3% 4ML NEB SOL INH SCH (07:39)
[2024-08-23 07:51] VITALS: O2SAT 95
[2024-08-23 08:10] LABS: HEMATOCRIT 28.5 % (42.0-52.0); HEMOGLOBIN 9.7 g/dl (13.5-17.5); MEAN CORPUSCULAR HEMOGLOBIN 35.3 pg (27.0-33.0); MEAN CORPUSCULAR VOLUME 103.6 fl (80.0-96.0); PLATELET COUNT, AUTOMATED 137 10^3/uL (150-450); RED BLOOD COUNT 2.75 10^6/uL (4.30-6.10); WHITE BLOOD COUNT 5.8 10^3/uL (4.0-10.0)
[2024-08-23] MEDS: CEFEPIME HCL 2 GM in DEXTROSE 5% (D5W) ADV/MINI-BAG 50 ML IV SCH (08:14)
[2024-08-23] MEDS: predniSONE 20 MG TAB PO SCH (08:15)
[2024-08-23] MEDS: DOCUSATE SODIUM 100MG CAPSULE PO SCH (08:15)
[2024-08-23] MEDS: guaiFENesin ER TABLET 600 MG TAB PO SCH (08:15)
[2024-08-23] MEDS: HEPARIN SOD (PORCINE) 5000UNITS/ML 1ML VIAL/SYRINGE SC SCH (08:18)
[2024-08-23 08:40] LABS: PROCALCITONIN 0.22 ng/ml
[2024-08-23 08:43] LABS: ALBUMIN 2.9 G/DL (3.2-5.2); ALKALINE PHOSPHATASE 44 U/L (40-129); ALT/SGPT 15 U/L (7.0-40); AST/SGOT 10 U/L (<34); BILIRUBIN,TOTAL 0.4 MG/DL (0.3-1.2); BLOOD UREA NITROGEN 22 MG/DL (9-23); CALCIUM LEVEL 8.4 MG/DL (8.3-10.6); CARBON DIOXIDE LEVEL 31 MMOL/L (20-31); CHLORIDE LEVEL 101 MMOL/L (98-107); CREATININE FOR GFR 0.61 MG/DL (0.70-1.30); GLOMERULAR FILTRATION RATE > 90.0 (>42); GLUCOSE, FASTING 186 MG/DL (74-106); MAGNESIUM LEVEL 1.7 MG/DL (1.8-2.4); POTASSIUM SERUM 3.8 MMOL/L (3.5-5.1); SODIUM LEVEL 141 MMOL/L (136-145); TOTAL PROTEIN 5.2 G/DL (5.7-8.2)
[2024-08-23] MEDS: AZITHROMYCIN 250MG TABLET PO SCH (09:49)
[2024-08-23 12:00] VITALS: BP_SYST 103; BP_SYST 115; BP_DIAS 45; BP_DIAS 54; TEMP 97.9; O2SAT 92
[2024-08-23] MEDS: IPRATROPIUM 0.5MG/ALBUTEROL 2.5MG INH SOL UD 3ML NEB PRN (15:55)
[2024-08-23] MEDS: PANTOPRAZOLE 40MG TAB (PROTONIX) PO SCH (16:18)
[2024-08-23] MEDS: TAMSULOSIN 0.4 MG CAP PO SCH (16:18)
[2024-08-23] MEDS: CitaloPRAM (CeleXA) 20 MG TAB PO SCH (16:18)
[2024-08-23] MEDS: hydroCHLOROthiazide 12.5 MG CAPSULE PO SCH (16:18)
[2024-08-23 20:00] VITALS: BP 100/49; TEMP 98.1; O2SAT 95
[2024-08-23] MEDS: traZODone 100 MG TAB PO SCH (20:47)
[2024-08-23] MEDS: SIMVASTATIN 20 MG TAB PO SCH (20:48)
[2024-08-24 03:42] VITALS: BP 113/53; TEMP 98.1; O2SAT 94
[2024-08-24 05:18] LABS: EOS % 0.6 % (0.0-3.0); HEMOGLOBIN 8.2 g/dl (13.5-17.5); LYMPH # 0.8 10^3/uL (1.5-5.0); LYMPH % 13.5 % (24.0-44.0); MEAN CORPUSCULAR HEMOGLOBIN 34.2 pg (27.0-33.0); MEAN CORPUSCULAR HGB CONC 32.8 g/dl (32.0-36.5); MEAN CORPUSCULAR VOLUME 104.2 fl (80.0-96.0); MONO # 0.6 10^3/uL (0.0-0.8); MONO % 9.8 % (2.0-8.0); NEUTROPHILS # 4.7 10^3/uL (1.5-8.5); NEUTROPHILS % 75.6 % (36.0-66.0); PLATELET COUNT, AUTOMATED 127 10^3/uL (150-450); WHITE BLOOD COUNT 6.2 10^3/uL (4.0-10.0)
[2024-08-24 05:44] LABS: BLOOD UREA NITROGEN 18 MG/DL (9-23); CALCIUM LEVEL 7.9 MG/DL (8.3-10.6); CARBON DIOXIDE LEVEL 31 MMOL/L (20-31); CHLORIDE LEVEL 104 MMOL/L (98-107); CREATININE FOR GFR 0.65 MG/DL (0.70-1.30); GLOMERULAR FILTRATION RATE > 90.0 (>42); GLUCOSE, FASTING 132 MG/DL (74-106); MAGNESIUM LEVEL 1.6 MG/DL (1.8-2.4); POTASSIUM SERUM 3.2 MMOL/L (3.5-5.1); SODIUM LEVEL 141 MMOL/L (136-145)
[2024-08-24] MEDS: POTASSIUM CHLORIDE 10MEQ SR TABLET PO ONE (06:28)
[2024-08-24] MEDS: MAG SULF 1GM/100ML (MAG RUN) 1 GM in IV 1 EA IV SCH (07:59)
[2024-08-24 08:04] VITALS: BP 134/60
[2024-08-24 12:00] VITALS: BP 119/57; TEMP 98.4; O2SAT 92
[2024-08-24] MEDS: BUDESONIDE 180MCG INHALER (PULMICORT FLEXHALER) INH SCH (19:58)
[2024-08-24] MEDS: ACETYLCYSTEINE 20% 4 ML VIAL (200MG/ML) INH SCH (19:58)
[2024-08-24 20:00] VITALS: BP 112/48; TEMP 98.2; O2SAT 94
[2024-08-24 21:03] VITALS: O2SAT 92
[2024-08-25 04:04] VITALS: BP 110/74; TEMP 98.1; O2SAT 95
[2024-08-25 05:43] LABS: BASO % 0.2 % (0.0-1.0); EOS # 0.1 10^3/uL (0.0-0.5); EOS % 0.9 % (0.0-3.0); HEMATOCRIT 26.2 % (42.0-52.0); HEMOGLOBIN 8.4 g/dl (13.5-17.5); LYMPH # 0.9 10^3/uL (1.5-5.0); LYMPH % 13.2 % (24.0-44.0); MEAN CORPUSCULAR HEMOGLOBIN 33.6 pg (27.0-33.0); MEAN CORPUSCULAR HGB CONC 32.1 g/dl (32.0-36.5); MEAN CORPUSCULAR VOLUME 104.8 fl (80.0-96.0); MONO # 0.8 10^3/uL (0.0-0.8); MONO % 12.7 % (2.0-8.0); NEUTROPHILS # 4.8 10^3/uL (1.5-8.5); NEUTROPHILS % 72.7 % (36.0-66.0); PLATELET COUNT, AUTOMATED 126 10^3/uL (150-450); WHITE BLOOD COUNT 6.5 10^3/uL (4.0-10.0)
[2024-08-25 06:09] LABS: BLOOD UREA NITROGEN 18 MG/DL (9-23); CALCIUM LEVEL 8.1 MG/DL (8.3-10.6); CARBON DIOXIDE LEVEL 33 MMOL/L (20-31); CHLORIDE LEVEL 106 MMOL/L (98-107); CREATININE FOR GFR 0.55 MG/DL (0.70-1.30); GLOMERULAR FILTRATION RATE > 90.0 (>42); GLUCOSE, FASTING 91 MG/DL (74-106); MAGNESIUM LEVEL 1.9 MG/DL (1.8-2.4); POTASSIUM SERUM 3.8 MMOL/L (3.5-5.1); SODIUM LEVEL 144 MMOL/L (136-145)
[2024-08-25 12:00] VITALS: BP 126/78; TEMP 97.7; O2SAT 94
[2024-08-25 17:57] VITALS: BP 141/82; TEMP 97.9; O2SAT 91
[2024-08-25] MEDS: LevoFLOXacin 750 MG TABLET PO SCH (18:34)
[2024-08-25 20:01] VITALS: BP 108/60; TEMP 98.1; O2SAT 98
[2024-08-25] MEDS: methylPREDNISolone 40MG 1ML VIAL IV SCH (20:07)
[2024-08-26 04:30] VITALS: BP 129/59; TEMP 98.4; O2SAT 93
[2024-08-26 05:34] LABS: HEMATOCRIT 25.6 % (42.0-52.0); HEMOGLOBIN 8.3 g/dl (13.5-17.5); LYMPH # 0.3 10^3/uL (1.5-5.0); LYMPH % 5.6 % (24.0-44.0); MEAN CORPUSCULAR HEMOGLOBIN 34.4 pg (27.0-33.0); MEAN CORPUSCULAR HGB CONC 32.4 g/dl (32.0-36.5); MEAN CORPUSCULAR VOLUME 106.2 fl (80.0-96.0); MONO # 0.4 10^3/uL (0.0-0.8); MONO % 7.3 % (2.0-8.0); NEUTROPHILS # 5.1 10^3/uL (1.5-8.5); NEUTROPHILS % 86.6 % (36.0-66.0); PLATELET COUNT, AUTOMATED 115 10^3/uL (150-450); RED BLOOD COUNT 2.41 10^6/uL (4.30-6.10); WHITE BLOOD COUNT 5.9 10^3/uL (4.0-10.0)
[2024-08-26 05:54] LABS: BLOOD UREA NITROGEN 19 MG/DL (9-23); CARBON DIOXIDE LEVEL 34 MMOL/L (20-31); CHLORIDE LEVEL 103 MMOL/L (98-107); CREATININE FOR GFR 0.61 MG/DL (0.70-1.30); GLOMERULAR FILTRATION RATE > 90.0 (>42); GLUCOSE, FASTING 115 MG/DL (74-106); MAGNESIUM LEVEL 1.8 MG/DL (1.8-2.4); POTASSIUM SERUM 4.5 MMOL/L (3.5-5.1); SODIUM LEVEL 140 MMOL/L (136-145)
[2024-08-26] MEDS: MIRALAX *UNIT DOSE* 17GM PACKET PO PRN (09:24)
[2024-08-26 11:53] VITALS: BP 131/71; TEMP 98.2; O2SAT 92
[2024-08-26 16:37] LABS: URINE STREP PNEUMONIAE ANTIGEN NOT DETECTED (NOT DETECT)
[2024-08-26 20:29] VITALS: BP 110/54; TEMP 98.2; O2SAT 93
[2024-08-27 03:28] VITALS: BP 122/60; TEMP 98.6; O2SAT 96
[2024-08-27 05:59] LABS: HEMATOCRIT 26.2 % (42.0-52.0); HEMOGLOBIN 8.5 g/dl (13.5-17.5); LYMPH # 0.5 10^3/uL (1.5-5.0); LYMPH % 6.7 % (24.0-44.0); MEAN CORPUSCULAR HEMOGLOBIN 34.3 pg (27.0-33.0); MEAN CORPUSCULAR HGB CONC 32.4 g/dl (32.0-36.5); MEAN CORPUSCULAR VOLUME 105.6 fl (80.0-96.0); MONO # 0.4 10^3/uL (0.0-0.8); MONO % 6.3 % (2.0-8.0); NEUTROPHILS % 86.6 % (36.0-66.0); PLATELET COUNT, AUTOMATED 123 10^3/uL (150-450); RED BLOOD COUNT 2.48 10^6/uL (4.30-6.10); WHITE BLOOD COUNT 6.9 10^3/uL (4.0-10.0)
[2024-08-27 06:25] LABS: BLOOD UREA NITROGEN 22 MG/DL (9-23); CALCIUM LEVEL 7.9 MG/DL (8.3-10.6); CARBON DIOXIDE LEVEL 35 MMOL/L (20-31); CHLORIDE LEVEL 103 MMOL/L (98-107); CREATININE FOR GFR 0.57 MG/DL (0.70-1.30); GLOMERULAR FILTRATION RATE > 90.0 (>42); GLUCOSE, FASTING 108 MG/DL (74-106); MAGNESIUM LEVEL 1.8 MG/DL (1.8-2.4); POTASSIUM SERUM 4.4 MMOL/L (3.5-5.1); SODIUM LEVEL 141 MMOL/L (136-145)
[2024-08-27] MEDS: SENOKOT S TAB PO SCH (10:43)
[2024-08-27] MEDS: MIRALAX *UNIT DOSE* 17GM PACKET PO SCH (10:43)
[2024-08-27 12:00] VITALS: BP 107/59; TEMP 97.7; O2SAT 91
[2024-08-27 19:52] VITALS: BP 111/55; TEMP 98.2; O2SAT 94
[2024-08-27 20:53] VITALS: O2SAT 91
[2024-08-28 03:43] VITALS: BP 113/58; TEMP 98.4; O2SAT 97
[2024-08-28 06:15] LABS: HEMATOCRIT 26.8 % (42.0-52.0); HEMOGLOBIN 8.8 g/dl (13.5-17.5); LYMPH # 0.5 10^3/uL (1.5-5.0); LYMPH % 6.1 % (24.0-44.0); MEAN CORPUSCULAR HEMOGLOBIN 35.2 pg (27.0-33.0); MEAN CORPUSCULAR HGB CONC 32.8 g/dl (32.0-36.5); MEAN CORPUSCULAR VOLUME 107.2 fl (80.0-96.0); MONO # 0.5 10^3/uL (0.0-0.8); MONO % 6.6 % (2.0-8.0); NEUTROPHILS % 87.1 % (36.0-66.0); PLATELET COUNT, AUTOMATED 123 10^3/uL (150-450); WHITE BLOOD COUNT 8.1 10^3/uL (4.0-10.0)
[2024-08-28 06:47] LABS: BLOOD UREA NITROGEN 24 MG/DL (9-23); CALCIUM LEVEL 8.1 MG/DL (8.3-10.6); CARBON DIOXIDE LEVEL 34 MMOL/L (20-31); CHLORIDE LEVEL 102 MMOL/L (98-107); CREATININE FOR GFR 0.66 MG/DL (0.70-1.30); GLOMERULAR FILTRATION RATE > 90.0 (>42); GLUCOSE, FASTING 108 MG/DL (74-106); MAGNESIUM LEVEL 1.8 MG/DL (1.8-2.4); POTASSIUM SERUM 4.3 MMOL/L (3.5-5.1); SODIUM LEVEL 139 MMOL/L (136-145)
[2024-08-28] MEDS: predniSONE 20 MG TAB PO SCH (09:45)
[2024-08-28 11:34] VITALS: BP 130/59; TEMP 98.4; O2SAT 94
[2024-08-28] MEDS: GLYCERIN ADULT SUPP PR ONE (11:49)
[2024-08-28 20:59] VITALS: BP 160/75; TEMP 98.2; O2SAT 94
[2024-08-28 23:07] VITALS: O2SAT 97
[2024-08-29 03:55] VITALS: BP 108/57; TEMP 97.5; O2SAT 96
[2024-08-29 05:48] LABS: EOS % 0.3 % (0.0-3.0); HEMATOCRIT 26.8 % (42.0-52.0); HEMOGLOBIN 8.6 g/dl (13.5-17.5); LYMPH # 0.8 10^3/uL (1.5-5.0); LYMPH % 10.7 % (24.0-44.0); MEAN CORPUSCULAR HEMOGLOBIN 34.4 pg (27.0-33.0); MEAN CORPUSCULAR HGB CONC 32.1 g/dl (32.0-36.5); MEAN CORPUSCULAR VOLUME 107.2 fl (80.0-96.0); MONO # 0.7 10^3/uL (0.0-0.8); MONO % 9.6 % (2.0-8.0); NEUTROPHILS # 5.7 10^3/uL (1.5-8.5); NEUTROPHILS % 78.8 % (36.0-66.0); PLATELET COUNT, AUTOMATED 110 10^3/uL (150-450); WHITE BLOOD COUNT 7.2 10^3/uL (4.0-10.0)
[2024-08-29 06:11] LABS: BLOOD UREA NITROGEN 21 MG/DL (9-23); CALCIUM LEVEL 7.9 MG/DL (8.3-10.6); CARBON DIOXIDE LEVEL 34 MMOL/L (20-31); CHLORIDE LEVEL 102 MMOL/L (98-107); CREATININE FOR GFR 0.57 MG/DL (0.70-1.30); GLOMERULAR FILTRATION RATE > 90.0 (>42); GLUCOSE, FASTING 96 MG/DL (74-106); MAGNESIUM LEVEL 1.7 MG/DL (1.8-2.4); POTASSIUM SERUM 3.8 MMOL/L (3.5-5.1); SODIUM LEVEL 141 MMOL/L (136-145)
[2024-08-29] MEDS ORDERED: IPRA0.00 NEB (10:43)
[2024-08-29 12:02] VITALS: BP 118/71; TEMP 97.9; O2SAT 94
[2024-08-29 13:18] LABS: APPEARANCE, URINE CLEAR (CLEAR); BACTERIA, URINE AUTO NEGATIVE (NEGATIVE); BILIRUBIN, URINE AUTO NEGATIVE (NEGATIVE); BLOOD, URINE BLOOD NEGATIVE (NEGATIVE); COLOR, URINE YELLOW (YELLOW); GLUCOSE, URINE (UA) AUTO NEGATIVE (NEGATIVE); KETONE, URINE AUTO NEGATIVE (NEGATIVE); LEUKOCYTE ESTERASE, URINE AUTO NEGATIVE (NEGATIVE); NITRITE, URINE AUTO NEGATIVE (NEGATIVE); PROTEIN, URINE AUTO NEGATIVE (NEGATIVE); RBC, URINE AUTO 0 /HPF (0-3); SPECIFIC GRAVITY URINE AUTO 1.013 (1.002-1.035); SQUAMOUS EPITHELIAL CELL UR AU 0 /HPF (0-6); UROBILINOGEN, URINE AUTO 0.2 mg/dL (0.0-2.0); WBC, URINE AUTO 0 /HPF (0-3)
== END 2024-08-29 17:13 | disposition home health service (06) | DRG 194 ==
LOC: M ED 15:27 → M ED INP 21:27 → M MSPAV 22:12
PROVIDERS: ADMIT Student in an Organized Health Care Education/Training Program; ATTEND Internal Medicine
DX: J18.9 Pneumonia, unspecified organism (principal); C34.90 Malignant neoplasm of unspecified part of unspecified bronchus or lung; C78.89 Secondary malignant neoplasm of other digestive organs; C78.4 Secondary malignant neoplasm of small intestine; J44.0 Chronic obstructive pulmonary disease with (acute) lower respiratory infection; I10 Essential (primary) hypertension; E78.5 Hyperlipidemia, unspecified; K21.9 Gastro-esophageal reflux disease without esophagitis; G47.00 Insomnia, unspecified; K59.00 Constipation, unspecified; N40.0 Benign prostatic hyperplasia without lower urinary tract symptoms; F39 Unspecified mood [affective] disorder; Z85.828 Personal history of other malignant neoplasm of skin; Z87.891 Personal history of nicotine dependence; Z79.2 Long term (current) use of antibiotics; Z79.899 Other long term (current) drug therapy; Z88.2 Allergy status to sulfonamides; Z88.8 Allergy status to other drugs, medicaments and biological substances

== ENCOUNTER 2024-09-06 13:08 | Outpatient (RCR) | payer MEDICARE ==
[2023-07-10 09:32] VITALS: BP 148/79; O2SAT 93
[2023-08-12 08:06] VITALS: BP 129/71; O2SAT 92
[2023-08-12 09:59] LABS: BASO % 0.6 % (0.0-1.0); EOS # 0.2 10^3/uL (0.0-0.5); EOS % 3.8 % (0.0-3.0); HEMATOCRIT 35.9 % (42.0-52.0); HEMOGLOBIN 12.1 g/dl (13.5-17.5); LYMPH # 1.1 10^3/uL (1.5-5.0); LYMPH % 20.9 % (24.0-44.0); MEAN CORPUSCULAR HEMOGLOBIN 33.2 pg (27.0-33.0); MEAN CORPUSCULAR HGB CONC 33.7 g/dl (32.0-36.5); MEAN CORPUSCULAR VOLUME 98.4 fl (80.0-96.0); MONO # 0.7 10^3/uL (0.0-0.8); MONO % 14.3 % (2.0-8.0); NEUTROPHILS % 60.2 % (36.0-66.0); PLATELET COUNT, AUTOMATED 188 10^3/uL (150-450); RED BLOOD COUNT 3.65 10^6/uL (4.30-6.10)
[2023-08-12 10:11] LABS: PARTIAL THROMBOPLASTIN TIME 27.7 SECONDS (24.8-34.2); PROTHROMBIN TIME 12.9 SECONDS (12.5-14.5)
[2023-08-12 10:21] LABS: ALBUMIN 3.9 G/DL (3.2-5.2); ALKALINE PHOSPHATASE 53 U/L (46-116); ALT/SGPT 20 U/L (7.0-40); AST/SGOT 23 U/L (<34); BILIRUBIN,TOTAL 0.5 MG/DL (0.3-1.2); BLOOD UREA NITROGEN 9 MG/DL (9-23); CALCIUM LEVEL 8.4 MG/DL (8.3-10.6); CARBON DIOXIDE LEVEL 27 MMOL/L (20-31); CHLORIDE LEVEL 97 MMOL/L (98-107); CREATININE FOR GFR 0.86 MG/DL (0.70-1.30); GLOMERULAR FILTRATION RATE > 60.0 (>42); GLUCOSE, FASTING 77 MG/DL (74-106); POTASSIUM SERUM 4.2 MMOL/L (3.5-5.1); SODIUM LEVEL 133 MMOL/L (136-145); TOTAL PROTEIN 6.2 G/DL (5.7-8.2)
[2023-09-07 10:47] VITALS: BP 140/76; O2SAT 90
[2023-09-07 10:55] LABS: BASO % 0.4 % (0.0-1.0); EOS # 0.2 10^3/uL (0.0-0.5); EOS % 3.1 % (0.0-3.0); HEMATOCRIT 36.2 % (42.0-52.0); LYMPH % 19.7 % (24.0-44.0); MEAN CORPUSCULAR HEMOGLOBIN 33.4 pg (27.0-33.0); MEAN CORPUSCULAR HGB CONC 33.1 g/dl (32.0-36.5); MEAN CORPUSCULAR VOLUME 100.8 fl (80.0-96.0); MONO # 0.8 10^3/uL (0.0-0.8); MONO % 15.5 % (2.0-8.0); NEUTROPHILS # 3.2 10^3/uL (1.5-8.5); NEUTROPHILS % 61.1 % (36.0-66.0); PLATELET COUNT, AUTOMATED 179 10^3/uL (150-450); RED BLOOD COUNT 3.59 10^6/uL (4.30-6.10); WHITE BLOOD COUNT 5.2 10^3/uL (4.0-10.0)
[2023-09-07 11:32] LABS: ALBUMIN 3.6 G/DL (3.2-5.2); ALKALINE PHOSPHATASE 52 U/L (46-116); ALT/SGPT 16 U/L (7.0-40); AST/SGOT 17 U/L (<34); BILIRUBIN,TOTAL 0.4 MG/DL (0.3-1.2); BLOOD UREA NITROGEN 11 MG/DL (9-23); CALCIUM LEVEL 8.7 MG/DL (8.3-10.6); CARBON DIOXIDE LEVEL 27 MMOL/L (20-31); CHLORIDE LEVEL 106 MMOL/L (98-107); GLOMERULAR FILTRATION RATE > 60.0 (>42); GLUCOSE, FASTING 93 MG/DL (74-106); SODIUM LEVEL 138 MMOL/L (136-145); TOTAL PROTEIN 6.2 G/DL (5.7-8.2)
[2023-09-07 12:15] LABS: HEPATITIS B CORE ANTIBODY IGM NEGATIVE (NEGATIVE); HEPATITIS B SURFACE ANTIBODY NEGATIVE (POSITIVE); HEPATITIS B SURFACE ANTIGEN NEGATIVE (NEGATIVE)
[2023-09-08 11:45] VITALS: BP 124/69; O2SAT 95
[2023-09-08] MEDS: diphenhydrAMINE 50 MG/ML VIAL IV SCH (12:54)
[2023-09-08] MEDS: FAMOTIDINE 20 MG/2 ML VIAL IV SCH (12:54)
[2023-09-08] MEDS: FOSAPREPITANT 150 MG in NS 245 ML IV SCH (12:54)
[2023-09-08] MEDS: PALONOSETRON 0.25 MG/5 ML VIAL IV SCH (12:55)
[2023-09-08] MEDS: dexAMETHasone 4 MG/ML 1 ML VIAL IV SCH (12:55)
[2023-09-15] MEDS: SODIUM CHLORIDE 0.9% INJ 10 ML SYR IV PRN (13:29)
[2023-09-15 13:47] LABS: BASO % 0.7 % (0.0-1.0); EOS # 0.2 10^3/uL (0.0-0.5); HEMATOCRIT 32.7 % (42.0-52.0); HEMOGLOBIN 11.1 g/dl (13.5-17.5); LYMPH # 0.8 10^3/uL (1.5-5.0); LYMPH % 18.2 % (24.0-44.0); MEAN CORPUSCULAR HEMOGLOBIN 34.3 pg (27.0-33.0); MEAN CORPUSCULAR HGB CONC 33.9 g/dl (32.0-36.5); MEAN CORPUSCULAR VOLUME 100.9 fl (80.0-96.0); MONO # 0.4 10^3/uL (0.0-0.8); MONO % 7.9 % (2.0-8.0); NEUTROPHILS # 3.1 10^3/uL (1.5-8.5); NEUTROPHILS % 68.5 % (36.0-66.0); PLATELET COUNT, AUTOMATED 156 10^3/uL (150-450); RED BLOOD COUNT 3.24 10^6/uL (4.30-6.10); WHITE BLOOD COUNT 4.6 10^3/uL (4.0-10.0)
[2023-09-15 14:07] VITALS: BP 117/66; O2SAT 92
[2023-09-15 14:23] LABS: ALBUMIN 3.5 G/DL (3.2-5.2); ALKALINE PHOSPHATASE 53 U/L (46-116); ALT/SGPT 21 U/L (7.0-40); AST/SGOT 19 U/L (<34); BILIRUBIN,TOTAL 0.6 MG/DL (0.3-1.2); BLOOD UREA NITROGEN 11 MG/DL (9-23); CALCIUM LEVEL 8.9 MG/DL (8.3-10.6); CARBON DIOXIDE LEVEL 28 MMOL/L (20-31); CHLORIDE LEVEL 106 MMOL/L (98-107); CREATININE FOR GFR 0.84 MG/DL (0.70-1.30); GLOMERULAR FILTRATION RATE > 60.0 (>42); GLUCOSE, FASTING 109 MG/DL (74-106); POTASSIUM SERUM 3.8 MMOL/L (3.5-5.1); SODIUM LEVEL 139 MMOL/L (136-145)
[2023-09-15 14:42] LABS: HEPATITIS B SURFACE ANTIBODY NEGATIVE (POSITIVE)
[2023-09-15 14:56] LABS: HEPATITIS B SURFACE ANTIGEN NEGATIVE (NEGATIVE)
[2023-09-15 15:14] LABS: HEPATITIS B CORE ANTIBODY IGM NEGATIVE (NEGATIVE)
[2023-09-16 12:00] VITALS: BP 109/59; O2SAT 95
[2023-09-16] MEDS: MAG SULF 1GM/100ML (MAG RUN) 100 ML IV ONE (12:14)
[2023-09-16] MEDS: dexAMETHasone 4 MG/ML 1 ML VIAL IV SCH (13:16)
[2023-09-16] MEDS: PALONOSETRON 0.25 MG/5 ML VIAL IV SCH (13:16)
[2023-09-16] MEDS: FOSAPREPITANT 150 MG in NS 245 ML IV SCH (13:17)
[2023-09-16] MEDS: diphenhydrAMINE 50 MG/ML VIAL IV SCH (13:17)
[2023-09-16] MEDS: FAMOTIDINE 20 MG/2 ML VIAL IV SCH (13:28)
[2023-09-16] MEDS: SODIUM CHLORIDE 0.9% INJ 10 ML SYR IV PRN (15:34)
[2023-09-23 11:45] LABS: BASO % 0.7 % (0.0-1.0); EOS # 0.1 10^3/uL (0.0-0.5); EOS % 1.9 % (0.0-3.0); HEMATOCRIT 30.4 % (42.0-52.0); HEMOGLOBIN 10.2 g/dl (13.5-17.5); LYMPH # 0.6 10^3/uL (1.5-5.0); LYMPH % 22.3 % (24.0-44.0); MEAN CORPUSCULAR HEMOGLOBIN 33.8 pg (27.0-33.0); MEAN CORPUSCULAR HGB CONC 33.6 g/dl (32.0-36.5); MEAN CORPUSCULAR VOLUME 100.7 fl (80.0-96.0); MONO # 0.3 10^3/uL (0.0-0.8); NEUTROPHILS # 1.7 10^3/uL (1.5-8.5); NEUTROPHILS % 64.7 % (36.0-66.0); PLATELET COUNT, AUTOMATED 131 10^3/uL (150-450); RED BLOOD COUNT 3.02 10^6/uL (4.30-6.10); WHITE BLOOD COUNT 2.7 10^3/uL (4.0-10.0)
[2023-09-23 11:47] VITALS: BP 114/63; O2SAT 93
[2023-09-23 12:16] LABS: ALBUMIN 3.5 G/DL (3.2-5.2); ALKALINE PHOSPHATASE 54 U/L (46-116); ALT/SGPT 28 U/L (7.0-40); AST/SGOT 23 U/L (<34); BILIRUBIN,TOTAL 0.5 MG/DL (0.3-1.2); BLOOD UREA NITROGEN 12 MG/DL (9-23); CARBON DIOXIDE LEVEL 29 MMOL/L (20-31); CHLORIDE LEVEL 104 MMOL/L (98-107); CREATININE FOR GFR 0.78 MG/DL (0.70-1.30); GLOMERULAR FILTRATION RATE > 60.0 (>42); GLUCOSE, FASTING 128 MG/DL (74-106); POTASSIUM SERUM 3.8 MMOL/L (3.5-5.1); SODIUM LEVEL 136 MMOL/L (136-145)
[2023-09-24 11:38] VITALS: BP 131/73; O2SAT 92
[2023-09-24] MEDS: MAG SULF 1GM/100ML (MAG RUN) 100 ML IV ONE (11:47)
[2023-09-24] MEDS: PALONOSETRON 0.25 MG/5 ML VIAL IV SCH (12:22)
[2023-09-24] MEDS: FAMOTIDINE 20 MG/2 ML VIAL IV SCH (12:22)
[2023-09-24] MEDS: diphenhydrAMINE 50 MG/ML VIAL IV SCH (12:22)
[2023-09-24] MEDS: FOSAPREPITANT 150 MG in NS 245 ML IV SCH (12:23)
[2023-09-24] MEDS: dexAMETHasone 4 MG/ML 1 ML VIAL IV SCH (12:23)
[2023-09-29 13:21] VITALS: BP 116/68; O2SAT 92
[2023-09-29 13:35] LABS: BASO % 0.4 % (0.0-1.0); EOS % 0.4 % (0.0-3.0); HEMATOCRIT 29.4 % (42.0-52.0); LYMPH # 0.5 10^3/uL (1.5-5.0); MONO # 0.2 10^3/uL (0.0-0.8); MONO % 8.2 % (2.0-8.0); NEUTROPHILS # 1.9 10^3/uL (1.5-8.5); NEUTROPHILS % 72.6 % (36.0-66.0); PLATELET COUNT, AUTOMATED 115 10^3/uL (150-450); RED BLOOD COUNT 2.94 10^6/uL (4.30-6.10); WHITE BLOOD COUNT 2.6 10^3/uL (4.0-10.0)
[2023-09-29 14:13] LABS: ALBUMIN 3.4 G/DL (3.2-5.2); ALKALINE PHOSPHATASE 54 U/L (46-116); ALT/SGPT 21 U/L (7.0-40); AST/SGOT 16 U/L (<34); BILIRUBIN,TOTAL 0.4 MG/DL (0.3-1.2); BLOOD UREA NITROGEN 8 MG/DL (9-23); CALCIUM LEVEL 8.8 MG/DL (8.3-10.6); CARBON DIOXIDE LEVEL 26 MMOL/L (20-31); CHLORIDE LEVEL 104 MMOL/L (98-107); CREATININE FOR GFR 0.72 MG/DL (0.70-1.30); GLOMERULAR FILTRATION RATE > 60.0 (>42); GLUCOSE, FASTING 111 MG/DL (74-106); POTASSIUM SERUM 4.1 MMOL/L (3.5-5.1); SODIUM LEVEL 136 MMOL/L (136-145); TOTAL PROTEIN 5.7 G/DL (5.7-8.2)
[2023-09-30 10:50] VITALS: BP 11/60; O2SAT 95
[2023-09-30] MEDS: diphenhydrAMINE 50 MG/ML VIAL IV SCH (11:43)
[2023-09-30] MEDS: FAMOTIDINE 20 MG/2 ML VIAL IV SCH (11:43)
[2023-09-30] MEDS: FOSAPREPITANT 150 MG in NS 245 ML IV SCH (11:43)
[2023-09-30] MEDS: MAG SULF 1GM/100ML (MAG RUN) 100 ML IV ONE (11:44)
[2023-09-30] MEDS: PALONOSETRON 0.25 MG/5 ML VIAL IV SCH (11:45)
[2023-09-30] MEDS: dexAMETHasone 4 MG/ML 1 ML VIAL IV SCH (11:45)
[2023-09-30] MEDS: SODIUM CHLORIDE 0.9% INJ 10 ML SYR IV PRN (15:00)
[2023-10-05 14:41] VITALS: BP 122/73; O2SAT 93
[2023-10-05] MEDS: SODIUM CHLORIDE 0.9% INJ 10 ML SYR IV PRN (14:41)
[2023-10-05 14:47] LABS: BASO % 0.5 % (0.0-1.0); EOS % 0.5 % (0.0-3.0); HEMATOCRIT 27.9 % (42.0-52.0); HEMOGLOBIN 9.5 g/dl (13.5-17.5); LYMPH # 0.3 10^3/uL (1.5-5.0); LYMPH % 17.7 % (24.0-44.0); MEAN CORPUSCULAR HEMOGLOBIN 33.7 pg (27.0-33.0); MEAN CORPUSCULAR HGB CONC 34.1 g/dl (32.0-36.5); MEAN CORPUSCULAR VOLUME 98.9 fl (80.0-96.0); MONO # 0.2 10^3/uL (0.0-0.8); MONO % 8.9 % (2.0-8.0); NEUTROPHILS # 1.4 10^3/uL (1.5-8.5); NEUTROPHILS % 71.4 % (36.0-66.0); RED BLOOD COUNT 2.82 10^6/uL (4.30-6.10); WHITE BLOOD COUNT 1.9 10^3/uL (4.0-10.0)
[2023-10-05 15:18] LABS: ALBUMIN 3.5 G/DL (3.2-5.2); ALKALINE PHOSPHATASE 57 U/L (46-116); ALT/SGPT 19 U/L (7.0-40); AST/SGOT 16 U/L (<34); BILIRUBIN,TOTAL 0.5 MG/DL (0.3-1.2); BLOOD UREA NITROGEN 13 MG/DL (9-23); CALCIUM LEVEL 8.3 MG/DL (8.3-10.6); CARBON DIOXIDE LEVEL 26 MMOL/L (20-31); CHLORIDE LEVEL 106 MMOL/L (98-107); CREATININE FOR GFR 0.77 MG/DL (0.70-1.30); GLOMERULAR FILTRATION RATE > 60.0 (>42); GLUCOSE, FASTING 112 MG/DL (74-106); POTASSIUM SERUM 4.1 MMOL/L (3.5-5.1); SODIUM LEVEL 138 MMOL/L (136-145)
[2023-10-05 15:30] LABS: PLATELET COUNT, AUTOMATED 81 10^3/uL (150-450)
[2023-10-06 11:00] VITALS: BP 108/67; O2SAT 94
[2023-10-06] MEDS: MAG SULF 1GM/100ML (MAG RUN) 100 ML IV SCH (11:04)
[2023-10-06] MEDS: SODIUM CHLORIDE 0.9% INJ 10 ML SYR IV PRN (13:00)
[2023-10-12] MEDS: SODIUM CHLORIDE 0.9% INJ 10 ML SYR IV PRN (13:12)
[2023-10-12 13:15] VITALS: BP 97/59; O2SAT 93
[2023-10-12 13:21] LABS: BASO % 0.7 % (0.0-1.0); EOS % 0.7 % (0.0-3.0); HEMATOCRIT 26.7 % (42.0-52.0); HEMOGLOBIN 9.1 g/dl (13.5-17.5); LYMPH # 0.3 10^3/uL (1.5-5.0); LYMPH % 19.5 % (24.0-44.0); MEAN CORPUSCULAR HEMOGLOBIN 34.5 pg (27.0-33.0); MEAN CORPUSCULAR HGB CONC 34.1 g/dl (32.0-36.5); MEAN CORPUSCULAR VOLUME 101.1 fl (80.0-96.0); MONO # 0.3 10^3/uL (0.0-0.8); MONO % 18.1 % (2.0-8.0); NEUTROPHILS % 60.3 % (36.0-66.0); RED BLOOD COUNT 2.64 10^6/uL (4.30-6.10); WHITE BLOOD COUNT 1.5 10^3/uL (4.0-10.0)
[2023-10-12 13:36] LABS: NEUTROPHILS # 0.9 10^3/uL (1.5-8.5)
[2023-10-12 13:37] LABS: PLATELET COUNT, AUTOMATED 98 10^3/uL (150-450)
[2023-10-12 13:57] LABS: ALBUMIN 3.4 G/DL (3.2-5.2); ALKALINE PHOSPHATASE 51 U/L (46-116); ALT/SGPT 17 U/L (7.0-40); AST/SGOT 11 U/L (<34); BILIRUBIN,TOTAL 0.3 MG/DL (0.3-1.2); BLOOD UREA NITROGEN 11 MG/DL (9-23); CALCIUM LEVEL 8.6 MG/DL (8.3-10.6); CARBON DIOXIDE LEVEL 27 MMOL/L (20-31); CHLORIDE LEVEL 105 MMOL/L (98-107); CREATININE FOR GFR 0.96 MG/DL (0.70-1.30); GLOMERULAR FILTRATION RATE > 60.0 (>42); GLUCOSE, FASTING 148 MG/DL (74-106); POTASSIUM SERUM 3.9 MMOL/L (3.5-5.1); SODIUM LEVEL 139 MMOL/L (136-145); TOTAL PROTEIN 6.1 G/DL (5.7-8.2)
[2023-10-13 09:51] VITALS: BP 96/61; O2SAT 95
[2023-10-13] MEDS: MAG SULF 1GM/100ML (MAG RUN) 100 ML IV SCH (09:51)
[2023-10-13] MEDS: SODIUM CHLORIDE 0.9% INJ 10 ML SYR IV PRN (11:55)
[2023-10-19] MEDS: SODIUM CHLORIDE 0.9% INJ 10 ML SYR IV PRN (11:21)
[2023-10-19 11:37] LABS: BASO % 0.4 % (0.0-1.0); EOS % 1.2 % (0.0-3.0); HEMATOCRIT 25.7 % (42.0-52.0); HEMOGLOBIN 8.7 g/dl (13.5-17.5); LYMPH # 0.5 10^3/uL (1.5-5.0); LYMPH % 19.6 % (24.0-44.0); MEAN CORPUSCULAR HEMOGLOBIN 34.7 pg (27.0-33.0); MEAN CORPUSCULAR HGB CONC 33.9 g/dl (32.0-36.5); MEAN CORPUSCULAR VOLUME 102.4 fl (80.0-96.0); MONO # 0.7 10^3/uL (0.0-0.8); MONO % 26.9 % (2.0-8.0); NEUTROPHILS # 1.3 10^3/uL (1.5-8.5); NEUTROPHILS % 51.1 % (36.0-66.0); PLATELET COUNT, AUTOMATED 125 10^3/uL (150-450); RED BLOOD COUNT 2.51 10^6/uL (4.30-6.10); WHITE BLOOD COUNT 2.6 10^3/uL (4.0-10.0)
[2023-10-19 11:59] LABS: ALBUMIN 3.7 G/DL (3.2-5.2); ALKALINE PHOSPHATASE 54 U/L (46-116); ALT/SGPT 15 U/L (7.0-40); AST/SGOT 15 U/L (<34); BILIRUBIN,TOTAL 0.5 MG/DL (0.3-1.2); BLOOD UREA NITROGEN 19 MG/DL (9-23); CALCIUM LEVEL 8.7 MG/DL (8.3-10.6); CARBON DIOXIDE LEVEL 28 MMOL/L (20-31); CHLORIDE LEVEL 105 MMOL/L (98-107); CREATININE FOR GFR 1.02 MG/DL (0.70-1.30); GLOMERULAR FILTRATION RATE > 60.0 (>42); GLUCOSE, FASTING 106 MG/DL (74-106); MAGNESIUM LEVEL 1.8 MG/DL (1.8-2.4); POTASSIUM SERUM 4.1 MMOL/L (3.5-5.1); SODIUM LEVEL 137 MMOL/L (136-145); TOTAL PROTEIN 6.3 G/DL (5.7-8.2)
[2023-10-19 12:18] VITALS: BP 97/59; O2SAT 94
[2023-10-20 09:42] VITALS: BP 103/60; O2SAT 93
[2023-10-20] MEDS: dexAMETHasone 4 MG/ML 1 ML VIAL IV SCH (09:59)
[2023-10-20] MEDS: PALONOSETRON 0.25 MG/5 ML VIAL IV SCH (09:59)
[2023-10-20] MEDS: FAMOTIDINE 20 MG/2 ML VIAL IV SCH (09:59)
[2023-10-20] MEDS: diphenhydrAMINE 50 MG/ML VIAL IV SCH (09:59)
[2023-10-20] MEDS: FOSAPREPITANT 150 MG in NS 245 ML IV SCH (10:00)
[2023-10-26] MEDS: SODIUM CHLORIDE 0.9% INJ 10 ML SYR IV PRN (15:30)
[2023-10-26 15:35] LABS: BASO % 0.3 % (0.0-1.0); EOS % 1.1 % (0.0-3.0); HEMATOCRIT 24.7 % (42.0-52.0); HEMOGLOBIN 8.4 g/dl (13.5-17.5); LYMPH # 0.5 10^3/uL (1.5-5.0); LYMPH % 12.7 % (24.0-44.0); MEAN CORPUSCULAR HEMOGLOBIN 34.9 pg (27.0-33.0); MEAN CORPUSCULAR VOLUME 102.5 fl (80.0-96.0); MONO # 0.5 10^3/uL (0.0-0.8); MONO % 14.4 % (2.0-8.0); NEUTROPHILS # 2.5 10^3/uL (1.5-8.5); NEUTROPHILS % 70.9 % (36.0-66.0); PLATELET COUNT, AUTOMATED 158 10^3/uL (150-450); RED BLOOD COUNT 2.41 10^6/uL (4.30-6.10); WHITE BLOOD COUNT 3.6 10^3/uL (4.0-10.0)
[2023-10-26 16:14] LABS: ALBUMIN 3.4 G/DL (3.2-5.2); ALKALINE PHOSPHATASE 55 U/L (46-116); ALT/SGPT 18 U/L (7.0-40); AST/SGOT 12 U/L (<34); BILIRUBIN,TOTAL 0.4 MG/DL (0.3-1.2); BLOOD UREA NITROGEN 16 MG/DL (9-23); CALCIUM LEVEL 8.6 MG/DL (8.3-10.6); CARBON DIOXIDE LEVEL 29 MMOL/L (20-31); CHLORIDE LEVEL 106 MMOL/L (98-107); CREATININE FOR GFR 0.98 MG/DL (0.70-1.30); GLOMERULAR FILTRATION RATE > 60.0 (>42); GLUCOSE, FASTING 109 MG/DL (74-106); MAGNESIUM LEVEL 1.6 MG/DL (1.8-2.4); SODIUM LEVEL 138 MMOL/L (136-145); TOTAL PROTEIN 6.1 G/DL (5.7-8.2)
[2023-10-29] MEDS: MAG SULF 1GM/100ML (MAG RUN) 100 ML IV ONE (08:00)
[2023-11-17 15:06] VITALS: BP 75/46; O2SAT 92
[2023-11-17] MEDS: NS 500 ML IV ONE (15:47)
[2023-11-17 16:06] LABS: BASO % 0.6 % (0.0-1.0); EOS # 0.4 10^3/uL (0.0-0.5); EOS % 8.6 % (0.0-3.0); HEMATOCRIT 25.6 % (42.0-52.0); HEMOGLOBIN 8.5 g/dl (13.5-17.5); LYMPH # 0.6 10^3/uL (1.5-5.0); LYMPH % 12.4 % (24.0-44.0); MEAN CORPUSCULAR HEMOGLOBIN 34.7 pg (27.0-33.0); MEAN CORPUSCULAR HGB CONC 33.2 g/dl (32.0-36.5); MEAN CORPUSCULAR VOLUME 104.5 fl (80.0-96.0); MONO # 0.9 10^3/uL (0.0-0.8); MONO % 17.9 % (2.0-8.0); NEUTROPHILS # 2.9 10^3/uL (1.5-8.5); NEUTROPHILS % 60.3 % (36.0-66.0); PLATELET COUNT, AUTOMATED 107 10^3/uL (150-450); RED BLOOD COUNT 2.45 10^6/uL (4.30-6.10); WHITE BLOOD COUNT 4.8 10^3/uL (4.0-10.0)
[2023-11-17 17:14] LABS: ALBUMIN 3.2 G/DL (3.2-5.2); ALKALINE PHOSPHATASE 61 U/L (46-116); ALT/SGPT 16 U/L (7.0-40); AST/SGOT 15 U/L (<34); BILIRUBIN,TOTAL 0.3 MG/DL (0.3-1.2); BLOOD UREA NITROGEN 20 MG/DL (9-23); CALCIUM LEVEL 8.8 MG/DL (8.3-10.6); CARBON DIOXIDE LEVEL 27 MMOL/L (20-31); CHLORIDE LEVEL 106 MMOL/L (98-107); CREATININE FOR GFR 1.17 MG/DL (0.70-1.30); GLOMERULAR FILTRATION RATE > 60.0 (>42); GLUCOSE, FASTING 109 MG/DL (74-106); MAGNESIUM LEVEL 1.6 MG/DL (1.8-2.4); POTASSIUM SERUM 4.3 MMOL/L (3.5-5.1); SODIUM LEVEL 139 MMOL/L (136-145); TOTAL PROTEIN 5.9 G/DL (5.7-8.2)
[2023-11-17 18:11] LABS: IRON (FE) 51 UG/DL (65-175); PERCENT SATURATION 18.6 % (19.7-50.0); TOTAL IRON BINDING CAPACITY 274 UG/DL (250-425)
[2023-11-17 18:14] LABS: FERRITIN 216.8 NG/ML (10.5-307.3)
[2023-11-18 12:35] VITALS: BP 96/59; O2SAT 96
[2023-11-18] MEDS: MAG SULF 1GM/100ML (MAG RUN) 100 ML IV ONE (13:03)
[2023-11-18] MEDS: SODIUM CHLORIDE 0.9% INJ 10 ML SYR IV PRN (14:01)
[2023-12-10 14:21] LABS: BASO % 0.7 % (0.0-1.0); EOS # 0.3 10^3/uL (0.0-0.5); HEMOGLOBIN 8.7 g/dl (13.5-17.5); LYMPH # 0.6 10^3/uL (1.5-5.0); LYMPH % 12.3 % (24.0-44.0); MEAN CORPUSCULAR HEMOGLOBIN 36.3 pg (27.0-33.0); MEAN CORPUSCULAR HGB CONC 33.5 g/dl (32.0-36.5); MEAN CORPUSCULAR VOLUME 108.3 fl (80.0-96.0); MONO # 0.8 10^3/uL (0.0-0.8); MONO % 17.2 % (2.0-8.0); NEUTROPHILS # 2.8 10^3/uL (1.5-8.5); NEUTROPHILS % 63.6 % (36.0-66.0); PLATELET COUNT, AUTOMATED 134 10^3/uL (150-450); WHITE BLOOD COUNT 4.5 10^3/uL (4.0-10.0)
[2023-12-10 14:56] LABS: ALBUMIN 3.3 G/DL (3.2-5.2); ALKALINE PHOSPHATASE 63 U/L (46-116); ALT/SGPT 14 U/L (7.0-40); AST/SGOT 16 U/L (<34); BILIRUBIN,TOTAL 0.4 MG/DL (0.3-1.2); BLOOD UREA NITROGEN 11 MG/DL (9-23); CALCIUM LEVEL 8.7 MG/DL (8.3-10.6); CARBON DIOXIDE LEVEL 29 MMOL/L (20-31); CHLORIDE LEVEL 103 MMOL/L (98-107); CREATININE FOR GFR 0.86 MG/DL (0.70-1.30); GLOMERULAR FILTRATION RATE > 60.0 (>42); GLUCOSE, FASTING 100 MG/DL (74-106); POTASSIUM SERUM 4.2 MMOL/L (3.5-5.1); SODIUM LEVEL 135 MMOL/L (136-145); TOTAL PROTEIN 6.1 G/DL (5.7-8.2)
[2023-12-10 16:05] LABS: FREE T3 2.7 PG/ML (2.3-4.2)
[2023-12-10 16:11] LABS: FREE T4 1.27 NG/DL (0.89-1.76); THYROID STIMULATING HORMONE 1.439 uIU/ML (0.55-4.78)
[2023-12-14 16:05] VITALS: BP 117/70; O2SAT 90
[2023-12-15 13:20] VITALS: BP 122/65; O2SAT 94
[2023-12-15] MEDS: NS IV SCH (13:52)
[2023-12-15] MEDS: DURVALUMAB IV SCH (13:52)
[2023-12-15] MEDS: SODIUM CHLORIDE 0.9% INJ 10 ML SYR IV PRN (14:57)
[2023-12-23 09:30] VITALS: BP 126/68; O2SAT 93
[2024-01-07 13:21] LABS: BASO % 0.5 % (0.0-1.0); EOS # 0.3 10^3/uL (0.0-0.5); HEMOGLOBIN 10.5 g/dl (13.5-17.5); LYMPH # 0.8 10^3/uL (1.5-5.0); LYMPH % 13.7 % (24.0-44.0); MEAN CORPUSCULAR HGB CONC 33.9 g/dl (32.0-36.5); MEAN CORPUSCULAR VOLUME 106.2 fl (80.0-96.0); MONO # 0.8 10^3/uL (0.0-0.8); MONO % 13.7 % (2.0-8.0); NEUTROPHILS # 3.6 10^3/uL (1.5-8.5); NEUTROPHILS % 65.9 % (36.0-66.0); PLATELET COUNT, AUTOMATED 144 10^3/uL (150-450); RED BLOOD COUNT 2.92 10^6/uL (4.30-6.10); WHITE BLOOD COUNT 5.5 10^3/uL (4.0-10.0)
[2024-01-07 13:55] LABS: ALBUMIN 3.6 G/DL (3.2-5.2); ALKALINE PHOSPHATASE 60 U/L (46-116); ALT/SGPT 17 U/L (7.0-40); AST/SGOT 19 U/L (<34); BILIRUBIN,TOTAL 0.4 MG/DL (0.3-1.2); BLOOD UREA NITROGEN 7 MG/DL (9-23); CALCIUM LEVEL 9.1 MG/DL (8.3-10.6); CARBON DIOXIDE LEVEL 32 MMOL/L (20-31); CHLORIDE LEVEL 101 MMOL/L (98-107); CREATININE FOR GFR 0.78 MG/DL (0.70-1.30); GLOMERULAR FILTRATION RATE > 60.0 (>42); GLUCOSE, FASTING 95 MG/DL (74-106); POTASSIUM SERUM 3.9 MMOL/L (3.5-5.1); SODIUM LEVEL 134 MMOL/L (136-145); TOTAL PROTEIN 6.5 G/DL (5.7-8.2)
[2024-01-07 14:44] LABS: FREE T4 1.47 NG/DL (0.89-1.76); THYROID STIMULATING HORMONE 1.612 uIU/ML (0.55-4.78)
[2024-01-07 14:52] LABS: FREE T3 3.1 PG/ML (2.3-4.2)
[2024-01-11 15:11] VITALS: BP 103/60; O2SAT 93
[2024-01-12 13:37] VITALS: BP 122/69; O2SAT 92
[2024-01-12] MEDS: DURVALUMAB IV SCH (14:29)
[2024-01-12] MEDS: NS IV SCH (14:29)
[2024-01-12] MEDS: SODIUM CHLORIDE 0.9% INJ 10 ML SYR IV PRN (15:33)
[2024-02-04] MEDS: SODIUM CHLORIDE 0.9% INJ 10 ML SYR IV PRN (15:28)
[2024-02-04 15:36] LABS: BASO % 0.4 % (0.0-1.0); EOS # 0.2 10^3/uL (0.0-0.5); HEMATOCRIT 29.9 % (42.0-52.0); LYMPH # 0.6 10^3/uL (1.5-5.0); LYMPH % 13.4 % (24.0-44.0); MEAN CORPUSCULAR HEMOGLOBIN 35.3 pg (27.0-33.0); MEAN CORPUSCULAR HGB CONC 33.4 g/dl (32.0-36.5); MEAN CORPUSCULAR VOLUME 105.7 fl (80.0-96.0); MONO # 0.8 10^3/uL (0.0-0.8); MONO % 16.8 % (2.0-8.0); NEUTROPHILS # 3.1 10^3/uL (1.5-8.5); NEUTROPHILS % 65.2 % (36.0-66.0); PLATELET COUNT, AUTOMATED 131 10^3/uL (150-450); RED BLOOD COUNT 2.83 10^6/uL (4.30-6.10); WHITE BLOOD COUNT 4.8 10^3/uL (4.0-10.0)
[2024-02-04 16:19] LABS: ALBUMIN 3.1 G/DL (3.2-5.2); ALKALINE PHOSPHATASE 53 U/L (46-116); ALT/SGPT 17 U/L (7.0-40); AST/SGOT 17 U/L (<34); BILIRUBIN,TOTAL 0.3 MG/DL (0.3-1.2); BLOOD UREA NITROGEN 11 MG/DL (9-23); CALCIUM LEVEL 8.7 MG/DL (8.3-10.6); CARBON DIOXIDE LEVEL 28 MMOL/L (20-31); CHLORIDE LEVEL 101 MMOL/L (98-107); CREATININE FOR GFR 0.71 MG/DL (0.70-1.30); GLOMERULAR FILTRATION RATE > 60.0 (>42); GLUCOSE, FASTING 115 MG/DL (74-106); POTASSIUM SERUM 3.7 MMOL/L (3.5-5.1); SODIUM LEVEL 134 MMOL/L (136-145); TOTAL PROTEIN 5.6 G/DL (5.7-8.2)
[2024-02-04 16:20] LABS: FREE T4 1.31 NG/DL (0.89-1.76)
[2024-02-04 16:21] LABS: THYROID STIMULATING HORMONE 1.162 uIU/ML (0.55-4.78)
[2024-02-04 17:33] LABS: FREE T3 2.9 PG/ML (2.3-4.2)
[2024-02-08 15:24] VITALS: BP 128/78; O2SAT 93
[2024-02-08 16:28] LABS: IRON (FE) 77 UG/DL (65-175); PERCENT SATURATION 26.6 % (19.7-50.0); TOTAL IRON BINDING CAPACITY 290 UG/DL (250-425)
[2024-02-08 16:31] LABS: FERRITIN 81.8 NG/ML (10.5-307.3)
[2024-02-09 09:20] VITALS: BP 139/74; O2SAT 94
[2024-02-09] MEDS: NS IV SCH (10:17)
[2024-02-09] MEDS: DURVALUMAB IV SCH (10:17)
[2024-02-09] MEDS: SODIUM CHLORIDE 0.9% INJ 10 ML SYR IV PRN (11:23)
[2024-03-07 13:30] LABS: BASO % 0.4 % (0.0-1.0); EOS # 0.3 10^3/uL (0.0-0.5); EOS % 5.7 % (0.0-3.0); HEMATOCRIT 32.7 % (42.0-52.0); HEMOGLOBIN 10.9 g/dl (13.5-17.5); LYMPH # 0.7 10^3/uL (1.5-5.0); LYMPH % 15.5 % (24.0-44.0); MEAN CORPUSCULAR HEMOGLOBIN 35.3 pg (27.0-33.0); MEAN CORPUSCULAR HGB CONC 33.3 g/dl (32.0-36.5); MEAN CORPUSCULAR VOLUME 105.8 fl (80.0-96.0); MONO # 0.7 10^3/uL (0.0-0.8); MONO % 15.7 % (2.0-8.0); NEUTROPHILS # 2.8 10^3/uL (1.5-8.5); NEUTROPHILS % 62.5 % (36.0-66.0); PLATELET COUNT, AUTOMATED 172 10^3/uL (150-450); RED BLOOD COUNT 3.09 10^6/uL (4.30-6.10); WHITE BLOOD COUNT 4.5 10^3/uL (4.0-10.0)
[2024-03-07 13:44] VITALS: BP 124/66; O2SAT 94
[2024-03-07] MEDS: SODIUM CHLORIDE 0.9% INJ 10 ML SYR IV PRN (13:50)
[2024-03-07 13:59] LABS: MAGNESIUM LEVEL 1.6 MG/DL (1.8-2.4)
[2024-03-07 14:00] LABS: ALBUMIN 3.5 G/DL (3.2-5.2); ALKALINE PHOSPHATASE 72 U/L (40-129); ALT/SGPT 22 U/L (7.0-40); AST/SGOT 22 U/L (<34); BILIRUBIN,TOTAL 0.4 MG/DL (0.3-1.2); BLOOD UREA NITROGEN 10 MG/DL (9-23); CALCIUM LEVEL 9.3 MG/DL (8.3-10.6); CARBON DIOXIDE LEVEL 30 MMOL/L (20-31); CHLORIDE LEVEL 103 MMOL/L (98-107); CREATININE FOR GFR 0.75 MG/DL (0.70-1.30); GLOMERULAR FILTRATION RATE > 60.0 (>42); GLUCOSE, FASTING 99 MG/DL (74-106); POTASSIUM SERUM 3.8 MMOL/L (3.5-5.1); SODIUM LEVEL 136 MMOL/L (136-145); TOTAL PROTEIN 6.9 G/DL (5.7-8.2)
[2024-03-07 14:03] LABS: FREE T4 1.45 NG/DL (0.89-1.76); THYROID STIMULATING HORMONE 1.399 uIU/ML (0.55-4.78)
[2024-03-07 14:06] LABS: FREE T3 3.1 PG/ML (2.3-4.2)
[2024-03-08 09:55] VITALS: BP 115/64; O2SAT 93
[2024-03-08] MEDS: MAG SULF 1GM/100ML (MAG RUN) 100 ML IV SCH (10:00)
[2024-03-08] MEDS: NS IV SCH (12:10)
[2024-03-08] MEDS: DURVALUMAB IV SCH (12:10)
[2024-03-08] MEDS: SODIUM CHLORIDE 0.9% INJ 10 ML SYR IV PRN (13:18)
[2024-04-04 14:41] LABS: BASO % 0.6 % (0.0-1.0); EOS # 0.4 10^3/uL (0.0-0.5); EOS % 8.8 % (0.0-3.0); HEMATOCRIT 31.7 % (42.0-52.0); HEMOGLOBIN 10.5 g/dl (13.5-17.5); LYMPH # 0.7 10^3/uL (1.5-5.0); LYMPH % 15.5 % (24.0-44.0); MEAN CORPUSCULAR HEMOGLOBIN 35.4 pg (27.0-33.0); MEAN CORPUSCULAR HGB CONC 33.1 g/dl (32.0-36.5); MEAN CORPUSCULAR VOLUME 106.7 fl (80.0-96.0); MONO # 0.8 10^3/uL (0.0-0.8); MONO % 16.8 % (2.0-8.0); NEUTROPHILS # 2.8 10^3/uL (1.5-8.5); NEUTROPHILS % 58.1 % (36.0-66.0); PLATELET COUNT, AUTOMATED 163 10^3/uL (150-450); RED BLOOD COUNT 2.97 10^6/uL (4.30-6.10); WHITE BLOOD COUNT 4.8 10^3/uL (4.0-10.0)
[2024-04-04 14:54] VITALS: BP 100/57
[2024-04-04 15:11] LABS: ALBUMIN 3.5 G/DL (3.2-5.2); ALKALINE PHOSPHATASE 64 U/L (40-129); ALT/SGPT 20 U/L (7.0-40); AST/SGOT 20 U/L (<34); BILIRUBIN,TOTAL 0.5 MG/DL (0.3-1.2); BLOOD UREA NITROGEN 15 MG/DL (9-23); CALCIUM LEVEL 9.3 MG/DL (8.3-10.6); CARBON DIOXIDE LEVEL 29 MMOL/L (20-31); CHLORIDE LEVEL 104 MMOL/L (98-107); CREATININE FOR GFR 0.83 MG/DL (0.70-1.30); GLOMERULAR FILTRATION RATE > 60.0 (>42); GLUCOSE, FASTING 119 MG/DL (74-106); POTASSIUM SERUM 4.1 MMOL/L (3.5-5.1); SODIUM LEVEL 139 MMOL/L (136-145); TOTAL PROTEIN 6.4 G/DL (5.7-8.2)
[2024-04-05 10:55] VITALS: BP 131/65; O2SAT 92
[2024-04-05] MEDS: DURVALUMAB IV SCH (12:11)
[2024-04-05] MEDS: NS IV SCH (12:11)
[2024-04-05 12:13] LABS: ALBUMIN 3.4 G/DL (3.2-5.2); ALKALINE PHOSPHATASE 61 U/L (40-129); ALT/SGPT 19 U/L (7.0-40); AST/SGOT 20 U/L (<34); BILIRUBIN,TOTAL 0.5 MG/DL (0.3-1.2); BLOOD UREA NITROGEN 14 MG/DL (9-23); CALCIUM LEVEL 9.3 MG/DL (8.3-10.6); CARBON DIOXIDE LEVEL 28 MMOL/L (20-31); CHLORIDE LEVEL 105 MMOL/L (98-107); GLOMERULAR FILTRATION RATE > 60.0 (>42); GLUCOSE, FASTING 83 MG/DL (74-106); SODIUM LEVEL 141 MMOL/L (136-145); TOTAL PROTEIN 6.2 G/DL (5.7-8.2)
[2024-04-05 12:15] LABS: MAGNESIUM LEVEL 1.7 MG/DL (1.8-2.4)
[2024-04-05 12:19] LABS: FREE T3 2.9 PG/ML (2.3-4.2)
[2024-04-05 12:20] LABS: FREE T4 1.25 NG/DL (0.89-1.76)
[2024-04-05] MEDS: MAG SULF 1GM/100ML (MAG RUN) 100 ML IV ONE (13:38)
[2024-05-02] MEDS: SODIUM CHLORIDE 0.9% INJ 10 ML SYR IV PRN (13:23)
[2024-05-02 13:28] LABS: BASO % 0.7 % (0.0-1.0); EOS # 0.2 10^3/uL (0.0-0.5); EOS % 5.2 % (0.0-3.0); HEMATOCRIT 30.9 % (42.0-52.0); HEMOGLOBIN 10.4 g/dl (13.5-17.5); LYMPH # 0.8 10^3/uL (1.5-5.0); LYMPH % 17.3 % (24.0-44.0); MEAN CORPUSCULAR HEMOGLOBIN 35.9 pg (27.0-33.0); MEAN CORPUSCULAR HGB CONC 33.7 g/dl (32.0-36.5); MEAN CORPUSCULAR VOLUME 106.6 fl (80.0-96.0); MONO # 0.7 10^3/uL (0.0-0.8); MONO % 15.1 % (2.0-8.0); NEUTROPHILS # 2.7 10^3/uL (1.5-8.5); NEUTROPHILS % 61.5 % (36.0-66.0); PLATELET COUNT, AUTOMATED 165 10^3/uL (150-450); WHITE BLOOD COUNT 4.4 10^3/uL (4.0-10.0)
[2024-05-02 13:43] VITALS: BP 94/50; O2SAT 93
[2024-05-02 14:01] LABS: ALBUMIN 3.6 G/DL (3.2-5.2); ALKALINE PHOSPHATASE 54 U/L (40-129); ALT/SGPT 18 U/L (7.0-40); AST/SGOT 25 U/L (<34); BILIRUBIN,TOTAL 0.4 MG/DL (0.3-1.2); BLOOD UREA NITROGEN 20 MG/DL (9-23); CALCIUM LEVEL 8.6 MG/DL (8.3-10.6); CARBON DIOXIDE LEVEL 28 MMOL/L (20-31); CHLORIDE LEVEL 105 MMOL/L (98-107); CREATININE FOR GFR 0.81 MG/DL (0.70-1.30); GLOMERULAR FILTRATION RATE > 60.0 (>42); GLUCOSE, FASTING 120 MG/DL (74-106); POTASSIUM SERUM 3.9 MMOL/L (3.5-5.1); SODIUM LEVEL 140 MMOL/L (136-145); TOTAL PROTEIN 6.7 G/DL (5.7-8.2)
[2024-05-02 14:02] LABS: MAGNESIUM LEVEL 1.8 MG/DL (1.8-2.4)
[2024-05-02 14:05] LABS: FREE T4 1.27 NG/DL (0.89-1.76); THYROID STIMULATING HORMONE 1.809 uIU/ML (0.55-4.78)
[2024-05-02 15:34] LABS: IRON (FE) 68 UG/DL (65-175); TOTAL IRON BINDING CAPACITY 296 UG/DL (250-425)
[2024-05-02 15:36] LABS: FERRITIN 93.9 NG/ML (10.5-307.3); VITAMIN B12 LEVEL 817 PG/ML (211-911)
[2024-05-02 15:40] LABS: FOLATE > 24.00 NG/ML (>5.4)
[2024-05-03 10:39] VITALS: BP 119/63; O2SAT 93
[2024-05-03] MEDS: DURVALUMAB IV SCH (11:45)
[2024-05-03] MEDS: NS IV SCH (11:45)
[2024-05-30] MEDS: SODIUM CHLORIDE 0.9% INJ 10 ML SYR IV PRN (13:19)
[2024-05-30 13:36] LABS: BASO % 0.8 % (0.0-1.0); EOS # 0.6 10^3/uL (0.0-0.5); HEMATOCRIT 30.5 % (42.0-52.0); HEMOGLOBIN 10.2 g/dl (13.5-17.5); LYMPH # 0.7 10^3/uL (1.5-5.0); LYMPH % 15.5 % (24.0-44.0); MEAN CORPUSCULAR HEMOGLOBIN 35.5 pg (27.0-33.0); MEAN CORPUSCULAR HGB CONC 33.4 g/dl (32.0-36.5); MEAN CORPUSCULAR VOLUME 106.3 fl (80.0-96.0); MONO # 0.7 10^3/uL (0.0-0.8); MONO % 13.7 % (2.0-8.0); NEUTROPHILS # 2.8 10^3/uL (1.5-8.5); NEUTROPHILS % 57.8 % (36.0-66.0); PLATELET COUNT, AUTOMATED 168 10^3/uL (150-450); RED BLOOD COUNT 2.87 10^6/uL (4.30-6.10); WHITE BLOOD COUNT 4.8 10^3/uL (4.0-10.0)
[2024-05-30 14:04] VITALS: BP 127/64; O2SAT 94
[2024-05-30 14:20] LABS: ALBUMIN 3.6 G/DL (3.2-5.2); ALKALINE PHOSPHATASE 66 U/L (40-129); ALT/SGPT 18 U/L (7.0-40); AST/SGOT 23 U/L (<34); BILIRUBIN,TOTAL 0.4 MG/DL (0.3-1.2); BLOOD UREA NITROGEN 19 MG/DL (9-23); CALCIUM LEVEL 8.9 MG/DL (8.3-10.6); CARBON DIOXIDE LEVEL 27 MMOL/L (20-31); CHLORIDE LEVEL 103 MMOL/L (98-107); CREATININE FOR GFR 0.74 MG/DL (0.70-1.30); GLOMERULAR FILTRATION RATE > 60.0 (>42); GLUCOSE, FASTING 86 MG/DL (74-106); POTASSIUM SERUM 4.1 MMOL/L (3.5-5.1); SODIUM LEVEL 140 MMOL/L (136-145); TOTAL PROTEIN 6.3 G/DL (5.7-8.2)
[2024-05-30 14:52] LABS: FREE T3 2.8 PG/ML (2.3-4.2); THYROID STIMULATING HORMONE 5.53 uIU/ML (0.55-4.78)
[2024-05-30 14:53] LABS: FERRITIN 92.5 NG/ML (10.5-307.3)
[2024-05-30 14:54] LABS: FREE T4 1.16 NG/DL (0.89-1.76)
[2024-05-31 12:36] VITALS: BP 126/70; O2SAT 94
[2024-05-31] MEDS: NS IV SCH (13:23)
[2024-05-31] MEDS: DURVALUMAB IV SCH (13:23)
[2024-05-31] MEDS: SODIUM CHLORIDE 0.9% INJ 10 ML SYR IV PRN (14:32)
[2024-06-27] MEDS: SODIUM CHLORIDE 0.9% INJ 10 ML SYR IV PRN (13:12)
[2024-06-27 13:19] LABS: BASO % 0.5 % (0.0-1.0); EOS # 0.1 10^3/uL (0.0-0.5); EOS % 1.3 % (0.0-3.0); HEMATOCRIT 32.3 % (42.0-52.0); HEMOGLOBIN 10.8 g/dl (13.5-17.5); LYMPH # 0.7 10^3/uL (1.5-5.0); LYMPH % 11.5 % (24.0-44.0); MEAN CORPUSCULAR HEMOGLOBIN 35.5 pg (27.0-33.0); MEAN CORPUSCULAR HGB CONC 33.4 g/dl (32.0-36.5); MEAN CORPUSCULAR VOLUME 106.3 fl (80.0-96.0); MONO # 0.8 10^3/uL (0.0-0.8); MONO % 12.5 % (2.0-8.0); NEUTROPHILS # 4.5 10^3/uL (1.5-8.5); PLATELET COUNT, AUTOMATED 172 10^3/uL (150-450); RED BLOOD COUNT 3.04 10^6/uL (4.30-6.10)
[2024-06-27 13:51] LABS: ALKALINE PHOSPHATASE 53 U/L (40-129); ALT/SGPT 17 U/L (7.0-40); AST/SGOT 20 U/L (<34); BILIRUBIN,TOTAL 0.6 MG/DL (0.3-1.2); BLOOD UREA NITROGEN 15 MG/DL (9-23); CALCIUM LEVEL 9.2 MG/DL (8.3-10.6); CARBON DIOXIDE LEVEL 25 MMOL/L (20-31); CHLORIDE LEVEL 104 MMOL/L (98-107); CREATININE FOR GFR 0.82 MG/DL (0.70-1.30); GLOMERULAR FILTRATION RATE > 60.0 (>42); GLUCOSE, FASTING 92 MG/DL (74-106); POTASSIUM SERUM 4.4 MMOL/L (3.5-5.1); SODIUM LEVEL 140 MMOL/L (136-145); TOTAL PROTEIN 6.9 G/DL (5.7-8.2)
[2024-06-27 14:09] LABS: IRON (FE) 61 UG/DL (65-175); TOTAL IRON BINDING CAPACITY 321 UG/DL (250-425)
[2024-06-27 14:10] LABS: FERRITIN 114.1 NG/ML (10.5-307.3); FREE T4 1.53 NG/DL (0.89-1.76); THYROID STIMULATING HORMONE 3.245 uIU/ML (0.55-4.78)
[2024-06-27 14:11] LABS: FREE T3 3.7 PG/ML (2.3-4.2)
[2024-06-27 14:12] LABS: VITAMIN B12 LEVEL 849 PG/ML (211-911)
[2024-06-27 14:13] LABS: FOLATE > 24.00 NG/ML (>5.4)
[2024-06-27 14:28] VITALS: BP 120/72; O2SAT 96
[2024-07-11 11:20] VITALS: BP 130/60; O2SAT 94
[2024-07-11] MEDS: SODIUM CHLORIDE 0.9% INJ 10 ML SYR IV PRN (11:40)
[2024-07-11 11:53] LABS: BASO % 0.3 % (0.0-1.0); EOS % 0.6 % (0.0-3.0); HEMATOCRIT 26.2 % (42.0-52.0); HEMOGLOBIN 8.4 g/dl (13.5-17.5); LYMPH # 0.5 10^3/uL (1.5-5.0); LYMPH % 6.8 % (24.0-44.0); MEAN CORPUSCULAR HEMOGLOBIN 34.3 pg (27.0-33.0); MEAN CORPUSCULAR HGB CONC 32.1 g/dl (32.0-36.5); MEAN CORPUSCULAR VOLUME 106.9 fl (80.0-96.0); MONO # 0.6 10^3/uL (0.0-0.8); MONO % 8.2 % (2.0-8.0); NEUTROPHILS % 83.8 % (36.0-66.0); PLATELET COUNT, AUTOMATED 208 10^3/uL (150-450); RED BLOOD COUNT 2.45 10^6/uL (4.30-6.10); WHITE BLOOD COUNT 7.2 10^3/uL (4.0-10.0)
[2024-07-11 12:32] LABS: PERCENT SATURATION 12.8 % (19.7-50.0)
[2024-07-11 12:33] LABS: ALBUMIN 3.1 G/DL (3.2-5.2); ALKALINE PHOSPHATASE 52 U/L (40-129); ALT/SGPT 35 U/L (7.0-40); AST/SGOT 20 U/L (<34); BILIRUBIN,TOTAL 0.3 MG/DL (0.3-1.2); BLOOD UREA NITROGEN 12 MG/DL (9-23); CARBON DIOXIDE LEVEL 30 MMOL/L (20-31); CHLORIDE LEVEL 101 MMOL/L (98-107); CREATININE FOR GFR 0.67 MG/DL (0.70-1.30); GLOMERULAR FILTRATION RATE > 60.0 (>42); GLUCOSE, FASTING 99 MG/DL (74-106); POTASSIUM SERUM 4.3 MMOL/L (3.5-5.1); SODIUM LEVEL 138 MMOL/L (136-145); TOTAL PROTEIN 6.6 G/DL (5.7-8.2)
[2024-07-11 12:35] LABS: FREE T4 1.39 NG/DL (0.89-1.76); THYROID STIMULATING HORMONE 1.315 uIU/ML (0.55-4.78)
[2024-07-11 15:44] LABS: PHOSPHORUS LEVEL 3.7 MG/DL (2.4-5.1)
[2024-07-12 11:30] VITALS: BP 112/56; O2SAT 91
[2024-07-12] MEDS: FERRIC CARBOXYMALTOSE INJ 750 MG, VIAL MATE ADAPTER 1 EACH in NS 100 ML IV SCH (11:57)
[2024-07-12] MEDS: NS IV SCH (12:36)
[2024-07-12] MEDS: DURVALUMAB IV SCH (12:36)
[2024-07-12 13:39] VITALS: BP 100/49; O2SAT 91
[2024-07-19 12:03] VITALS: BP 120/66; O2SAT 94
[2024-07-19] MEDS: FERRIC CARBOXYMALTOSE INJ 750 MG, VIAL MATE ADAPTER 1 EACH in NS 100 ML IV SCH (13:11)
[2024-07-19 13:50] VITALS: BP 127/65; O2SAT 91
[2024-07-19] MEDS: SODIUM CHLORIDE 0.9% INJ 10 ML SYR IV PRN (13:52)
[2024-08-08] MEDS: SODIUM CHLORIDE 0.9% INJ 10 ML SYR IV PRN (13:12)
[2024-08-08 13:28] LABS: BASO % 0.4 % (0.0-1.0); EOS # 0.2 10^3/uL (0.0-0.5); EOS % 2.3 % (0.0-3.0); HEMATOCRIT 30.4 % (42.0-52.0); HEMOGLOBIN 9.9 g/dl (13.5-17.5); LYMPH # 0.6 10^3/uL (1.5-5.0); LYMPH % 6.7 % (24.0-44.0); MEAN CORPUSCULAR HEMOGLOBIN 34.1 pg (27.0-33.0); MEAN CORPUSCULAR HGB CONC 32.6 g/dl (32.0-36.5); MEAN CORPUSCULAR VOLUME 104.8 fl (80.0-96.0); MONO # 0.9 10^3/uL (0.0-0.8); MONO % 10.4 % (2.0-8.0); NEUTROPHILS # 6.6 10^3/uL (1.5-8.5); NEUTROPHILS % 79.8 % (36.0-66.0); PLATELET COUNT, AUTOMATED 163 10^3/uL (150-450); WHITE BLOOD COUNT 8.3 10^3/uL (4.0-10.0)
[2024-08-08 14:06] LABS: ALBUMIN 3.4 G/DL (3.2-5.2); ALKALINE PHOSPHATASE 58 U/L (40-129); ALT/SGPT 16 U/L (7.0-40); AST/SGOT 15 U/L (<34); BILIRUBIN,TOTAL 0.4 MG/DL (0.3-1.2); BLOOD UREA NITROGEN 15 MG/DL (9-23); CALCIUM LEVEL 8.5 MG/DL (8.3-10.6); CARBON DIOXIDE LEVEL 31 MMOL/L (20-31); CHLORIDE LEVEL 100 MMOL/L (98-107); CREATININE FOR GFR 0.62 MG/DL (0.70-1.30); GLOMERULAR FILTRATION RATE > 90.0 (>42); GLUCOSE, FASTING 105 MG/DL (74-106); POTASSIUM SERUM 4.1 MMOL/L (3.5-5.1); SODIUM LEVEL 137 MMOL/L (136-145); TOTAL PROTEIN 6.5 G/DL (5.7-8.2)
[2024-08-08 14:29] LABS: THYROID STIMULATING HORMONE 1.267 uIU/ML (0.55-4.78)
[2024-08-08 14:30] LABS: FREE T4 1.3 NG/DL (0.89-1.76); MAGNESIUM LEVEL 1.9 MG/DL (1.8-2.4)
[2024-08-08 15:33] VITALS: BP 125/69; O2SAT 89
[2024-08-08 17:24] LABS: FREE T3 2.8 PG/ML (2.3-4.2)
[2024-08-09 12:38] VITALS: BP 106/54; O2SAT 94
[2024-08-09] MEDS: NS IV SCH (13:16)
[2024-08-09] MEDS: DURVALUMAB IV SCH (13:16)
[2024-08-09] MEDS: SODIUM CHLORIDE 0.9% INJ 10 ML SYR IV PRN (14:23)
[2024-09-05 13:50] LABS: BASO % 0.2 % (0.0-1.0); EOS # 0.1 10^3/uL (0.0-0.5); EOS % 2.4 % (0.0-3.0); HEMATOCRIT 31.3 % (42.0-52.0); HEMOGLOBIN 10.4 g/dl (13.5-17.5); LYMPH # 0.3 10^3/uL (1.5-5.0); LYMPH % 5.7 % (24.0-44.0); MEAN CORPUSCULAR HGB CONC 33.2 g/dl (32.0-36.5); MEAN CORPUSCULAR VOLUME 105.4 fl (80.0-96.0); MONO # 0.6 10^3/uL (0.0-0.8); MONO % 10.4 % (2.0-8.0); NEUTROPHILS # 4.4 10^3/uL (1.5-8.5); NEUTROPHILS % 81.1 % (36.0-66.0); PLATELET COUNT, AUTOMATED 113 10^3/uL (150-450); RED BLOOD COUNT 2.97 10^6/uL (4.30-6.10); WHITE BLOOD COUNT 5.5 10^3/uL (4.0-10.0)
[2024-09-05 14:29] LABS: ALBUMIN 3.3 G/DL (3.2-5.2); ALKALINE PHOSPHATASE 56 U/L (40-129); ALT/SGPT 15 U/L (7.0-40); AST/SGOT 19 U/L (<34); BILIRUBIN,TOTAL 0.4 MG/DL (0.3-1.2); BLOOD UREA NITROGEN 9 MG/DL (9-23); CALCIUM LEVEL 8.6 MG/DL (8.3-10.6); CARBON DIOXIDE LEVEL 34 MMOL/L (20-31); CHLORIDE LEVEL 97 MMOL/L (98-107); CREATININE FOR GFR 0.46 MG/DL (0.70-1.30); GLOMERULAR FILTRATION RATE > 90.0 (>42); GLUCOSE, FASTING 121 MG/DL (74-106); SODIUM LEVEL 136 MMOL/L (136-145); TOTAL PROTEIN 6.1 G/DL (5.7-8.2)
[2024-09-05 15:01] LABS: PERCENT SATURATION 25.9 % (19.7-50.0)
[2024-09-05 15:05] LABS: FERRITIN 964.3 NG/ML (10.5-307.3)
[2024-09-05 15:11] LABS: FREE T3 2.8 PG/ML (2.3-4.2); FREE T4 1.53 NG/DL (0.89-1.76); THYROID STIMULATING HORMONE 1.122 uIU/ML (0.55-4.78)
[~2024-09-06] VITALS: Ht 175.3 cm; Wt 72.3 kg
[~2024-09-06 13:08] MED LIST changes: +ALBU8.5H INH; +BENA-8 PO; +CITA20TA7 PO; +FAMOTIDINE 20 MG/2 ML VIAL IV SCH; +FOSAPREPITANT 150 MG in NS 245 ML IV SCH; +IPRA0.00 NEB; +KETO2CR TOP; +LINZ290C PO; +PALONOSETRON 0.25 MG/5 ML VIAL IV SCH; +SODIUM CHLORIDE 0.9% INJ 10 ML SYR IV PRN; +TIOT18CA INH; +dexAMETHasone 4 MG/ML 1 ML VIAL IV SCH; +diphenhydrAMINE 50 MG/ML VIAL IV SCH
[2024-09-06 13:22] VITALS: BP 139/77; O2SAT 88; O2SAT 91
[2024-09-06] MEDS: DURVALUMAB IV SCH (15:02)
[2024-09-06] MEDS: NS IV SCH (15:02)
[2024-09-06] MEDS ORDERED: PRED20TA PO (16:49)
[2024-09-15] MEDS ORDERED: FORM20VI2 IH (09:46)
[2024-09-15] MEDS ORDERED: IPRA0.00 INH ×2 (09:46→14:17)
[2024-09-15] MEDS ORDERED: BUDE0.5S6 INH (09:46)
[2024-09-15] MEDS ORDERED: HYDR12.55 PO (09:46)
[2024-09-15] MEDS ORDERED: SODI3NEB INH (09:46)
[2024-09-15] MEDS ORDERED: AZIT-12 PO (13:08)
[2024-09-15] MEDS ORDERED: CEFD300CAP PO (13:08)
[2024-09-15] MEDS ORDERED: ADVA1AER9 INH (13:18)
[2024-09-15] MEDS ORDERED: SPIR1CAP INH (13:18)
[2024-09-15] MEDS ORDERED: MUCI1TAB18 PO (13:19)
[2024-09-27] MEDS ORDERED: MUCI1TAB18 PO (09:39)
[2024-10-03] MEDS ORDERED: SODIUM CHLORIDE 0.9% INJ 10 ML SYR IV PRN (08:00)
== END 2024-10-01 | disposition expired ==
LOC: M ONCM 10-01
PROVIDERS: ATTEND Internal Medicine Medical Oncology
DX: C34.11 Malignant neoplasm of upper lobe, right bronchus or lung (principal); C34.31 Malignant neoplasm of lower lobe, right bronchus or lung; C34.32 Malignant neoplasm of lower lobe, left bronchus or lung; C77.1 Secondary and unspecified malignant neoplasm of intrathoracic lymph nodes; J44.9 Chronic obstructive pulmonary disease, unspecified; I10 Essential (primary) hypertension; Z11.59 Encounter for screening for other viral diseases; Z79.899 Other long term (current) drug therapy; Z87.891 Personal history of nicotine dependence; Z51.12 Encounter for antineoplastic immunotherapy; R53.83 Other fatigue; R91.8 Other nonspecific abnormal finding of lung field; Z51.11 Encounter for antineoplastic chemotherapy
CPT/HCPCS: 36415; 36591; 71046; 80053; 82607; 82728; 82746; 83540; 83550; 83735; 84100; 84439; 84443; 84481; 85025; 85049; 85055; 85610; 85730; 86705; 86706; 87070; 87205; 87340; 96360; 96365; 96366; 96367; 96368; 96375; 96413; 96417; G0463; J1100; J1200; J1439; J1453; J1642; J2469; J3475; J9045; J9173; J9267